=== PATIENT | female | born 1965 | race Caucasian/White ===

== ENCOUNTER 2019-10-23 09:26 | Outpatient (CLI) | payer OTHER, SELFPAY ==
--- NOTE | ~2019-10-23 | US_ITS ---
EXAMINATION: US venous doppler [facility] DATE: 10/23/2019 10:26 INDICATION: Left lower limb pain and swelling TECHNIQUE: Grayscale ultrasound images without and with compression and Doppler ultrasound images of the left lower extremity veins were obtained. COMPARISON: None. FINDINGS: Noncompressible occlusive appearing deep venous thrombosis in the peroneal veins at the left calf. Th e visualized portions of left common femoral vein, profunda (deep) femoral vein, femoral vein, poplit eal vein, posterior tibial veins, gastrocnemius vein and greater saphenous vein outflow are patent. IMPRESSION: 1. [id number] deep venous necrosis in the left peroneal veins at the calf. Reviewed, dictated and finalized at location A. IMPRESSION: 1. [id number] deep venous necrosis in the left peroneal veins at the calf.
== END 2019-10-23 09:27 | disposition home or self-care (01) ==
PROVIDERS: PCP Family Medicine; Visit Provider Family Medicine
DX: R60.0 Localized edema (principal); M79.605 Pain in left leg; I96 Gangrene, not elsewhere classified
CPT/HCPCS: 93971

== ENCOUNTER 2019-11-07 14:00 | Outpatient (CLI) | payer OTHER, SELFPAY ==
--- NOTE | ~2019-11-07 | XR_ITS ---
XR ankle RT min 3V DATE: 11/07/2019 15:01 INDICATION: Right ankle and foot pain TECHNIQUE: 4 views COMPARISON: None FINDINGS: Minimal lateral soft tissue swelling. Mild plantar and posterior calcaneal enthesopathy. No fracture or dislocation of the ankle or disruption of the ankle mortise. No periosteal reaction or bone destruction. IMPRESSION: Minimal lateral soft tissue swelling Mild posterior and plantar calcaneal enthesopathy Reviewed, dictated and finalized at location J.
--- NOTE | ~2019-11-07 | XR_ITS ---
XR foot RT min 3V DATE: 11/07/2019 15:02 INDICATION: Right foot pain. No known injury. TECHNIQUE: 4 views COMPARISON: None FINDINGS: Mild plantar and posterior calcaneal enthesopathy. There is joint space narrowing at the first metatarsophalangeal and first interphalangeal joints, con sistent with osteoarthritis. No fracture or dislocation, periosteal reaction or bone destruction. IMPRESSION: Mild plantar and posterior calcaneal enthesopathy Mild osteoarthritis Reviewed, dictated and finalized at location J.
--- NOTE | ~2019-11-07 | US_ITS ---
EXAMINATION: US venous doppler LE RT EXAM DATE: 11/07/2019 14:46 INDICATION: Right Foot pain. TECHNIQUE: Multiple grayscale, color flow and Doppler images of the right lower extremity deep venous system were obtained and reviewed. Comparison is made to prior examination from 01/21/2017. FINDINGS: The right common femoral, femoral and profunda veins demonstrate normal color flow, respira tory variation, augmentation and compressibility. Compressibility, color flow confirmed within the r ight popliteal, posterior tibial, peroneal, and greater saphenous veins. IMPRESSION: 1. No right lower extremity deep venous thrombosis. Reviewed, dictated and finalized at location A.
== END 2019-11-07 14:01 | disposition home or self-care (01) ==
LOC: ANHIMG 14:03
PROVIDERS: PCP Family Medicine; Visit Provider Family Medicine
DX: M79.671 Pain in right foot (principal); M77.31 Calcaneal spur, right foot; M19.071 Primary osteoarthritis, right ankle and foot; M79.89 Other specified soft tissue disorders
CPT/HCPCS: 73610; 73630; 93971

== ENCOUNTER 2019-11-13 10:08 | Emergency (ER) | payer OTHER, SELFPAY ==
--- NOTE | 2019-11-13 10:16 | ED.BACK ---
HPI - Back Pain/Injury General Chief Complaint: Back Pain/Injury <NEVILLE Hill Last Filed: 11/13/19 11:36> Stated Complaint: Pain in my arturo <NEVILLE Hill Last Filed: 11/13/19 11:36> Time Seen by Provider: 11/13/19 10:12 <NEVILLE Hill Last Filed: 11/13/19 11:36> Source: patient and RN notes reviewed <NEVILLE Hill Last Filed: 11/13/19 11:36> Mode of arrival: ambulatory <NEVILLE Hill Last Filed: 11/13/19 11:36> Limitations: no limitations <NEVILLE Hill Last Filed: 11/13/19 11:36> History of Present Illness HPI Narrative: Pt is a 54 y/o female with a Hx of fibromyalgia, who presents to the ED with c/o waxing and waning lt middle back pain starting 1 day ago. She notes that she hasn't had any recent injuries that may have caused her pain. Pt notes that her pain has stayed around a 6/10, but states that her pain intermittently aggravates into an 8/10. Pt describes her pain as cramping and sharp. She notes that her pain is worsened with deep breathing. Pt also reports chronic hematuria and SOB, but denies any dysuria, cough, rhinorrhea, sore throat, fever, ABD pain, or acute numbness/tingling. She notes that she was recently diagnosed with a DVT, and states that she is currently taking Eliquis. Pt states that she took Percocet for her pain earlier this morning. She notes that she is concerned due to her current pain feeling different than previous fibromyalgia-associated pain. <NEVILLE Hill Last Filed: 11/13/19 11:36> MD elicited complaint: back pain <NEVILLE Hill Last Filed: 11/13/19 11:36> Pertinent past history: other (fibromyalgia) <NEVILLE Hill Last Filed: 11/13/19 11:36> Onset (ago): day(s) (1) <NEVILLE Hill Last Filed: 11/13/19 11:36> Timing: constant <NEVILLE Hill Last Filed: 11/13/19 11:36> Pain scale (0-10): 6 <NEVILLE Hill Last Filed: 11/13/19 11:36> Quality: sharp and other (cramping) <NEVILLE Hill Last Filed: 11/13/19 11:36> Location: left upper back <NEVILLE Hill Last Filed: 11/13/19 11:36> Exacerbating factors: deep breaths <NEVILLE Hill Last Filed: 11/13/19 11:36> Associated symptoms: hematuria (chronic) and other (SOB (chronic)) <NEVILLE Hill Last Filed: 11/13/19 11:36> Treatments prior to arrival: prescription analgesics (Percocet) <NEVILLE Hill Last Filed: 11/13/19 11:36> Related Data Home Medications: Home Medications Medication Instructions Recorded Confirmed Marijuana PRN 11/13/19 albuterol sulfate 11/13/19 alprazolam 11/13/19 apixaban [Eliquis] mg 11/13/19 atorvastatin 11/13/19 benzonatate mg PO 11/13/19 cyclobenzaprine mg 11/13/19 diclofenac sodium PO 11/13/19 duloxetine mg PO 11/13/19 furosemide 11/13/19 ipratropium-albuterol ml INHALATION 11/13/19 metoprolol succinate PO 11/13/19 naloxone [Narcan] INTRANASAL 11/13/19 oxycodone-acetaminophen 11/13/19 potassium chloride meq PO 11/13/19 pregabalin 11/13/19 pregabalin [Lyrica] 11/13/19 <NEVILLE Hill Last Filed: 11/13/19 11:36> Allergies/Adverse Reactions: Allergies Allergy/AdvReac Type Severity Reaction Status Date / Time ciprofloxacin Allergy Unknown Hives / Verified 11/13/19 10:23 Red Face Penicillins Allergy Unknown Unknown Verified 11/13/19 10:23 lisinopril AdvReac Intermediate COUGH Verified 11/13/19 10:23 <NEVILLE Hill Last Filed: 11/13/19 11:36> Review of Systems Review of Systems: All systems reviewed & are unremarkable except as noted in HPI and below <Hira Wilson PA-C - Last Filed: 11/13/19 11:36> Constitutional: Constitutional: Denies fever(s) <Hira Wilson PA-C - Last Filed: 11/13/19 11:36> ENT: Denies nasal discharge and Denies sore throat <Hira Feliz
[2019-11-13 10:18] VITALS: BP 122/73; PULSE 69; RESP 20; TEMP 36.2; O2SAT 98
[2019-11-13 10:40] LABS: Basophils Absolute Auto 0.1 K/mm3 (0.0-0.1); Basophils Percent Auto 0.5 % (0.2-1.2); Eosinophils Absolute Auto 0.3 K/mm3 (0-0.3); Eosinophils Percent Auto 2.4 % (0-4.4); Hematocrit 40.8 % (37.0-47.0); Hemoglobin 13.2 g/dL (12.0-15.0); Immature Granulocyte Absolute 0.04 K/mm3 (0.00-0.031); Immature Granulocyte Percent A 0.3 % (0-0.5); Lymphocytes Absolute Auto 2.57 K/mm3 (0.9-3.2); Mean Corpuscular HGB Conc 32.4 g/dl (32-36); Mean Corpuscular Hemoglobin 28.5 pg (26-34); Mean Corpuscular Volume 88.1 fl (80-100); Mean Platelet Volume 11.9 fl (7.4-10.4); Monocytes Absolute Auto 0.6 K/mm3 (0.1-0.6); Monocytes Percent Auto 5.2 % (2.6-8.5); Neutrophils Absolute Auto 8.1 K/mm3 (1.3-6.7); Neutrophils Percent Auto 69.6 % (45.5-73.1); Platelet Count Result 242 k/mm3 (150-375); Red Blood Count 4.63 M/mm3 (4.2-5.4); Red Cell Distribution Width 14.6 % (11.5-14.5); White Blood Count 11.7 K/mm3 (4.5-10.0)
[2019-11-13 10:52] LABS: Alanine Aminotransferase 45 U/L (4-35); Albumin Level 4.2 g/dL (3.5-5.1); Alkaline Phosphatase 106 U/L (38-126); Aspartate Amino Transferase 40 U/L (14-36); Bilirubin,Total 0.6 mg/dL (0.2-1.3); Blood Urea Nitrogen 27 mg/dL (7-17); Calcium 9.4 mg/dL (8.4-10.2); Carbon Dioxide 30 mmol/L (22-30); Chloride 100 mmol/L (98-107); Estimated CRCL calculation 59 ml/min; Estimated Glomerular Filt Rate 39; Glucose 93 mg/dL (65-105); Potassium 3.5 mmol/L (3.4-5.0); Sodium 138 mmol/L (137-145)
[2019-11-13 10:53] LABS: Add Urine Microscopic? YES; Appearance Urine Clear (Clear); Bilirubin Urine Negative (Negative); Blood Urine 2+ (Negative); Color Urine Yellow (Yellow); Glucose Urine UA Negative (Negative); Hyaline Casts Urine 15-19 /lpf; Ketones Urine Negative (Negative); Leukocyte Esterase Ur Negative LEU/UL (Negative); Mucus Urine Rare /lpf; Nitrate Urine Negative (Negative); Protein Urine Negative (Negative); Specific Grav Ur 1.017 (1.001-1.035); Squamous Epithelial Cell Urine Many /hpf (Few); Urobilinogen Urine Negative mg/dL (<2.0); WBC Urine 0-3 /hpf
== END 2019-11-13 11:42 | disposition home or self-care (01) ==
PROVIDERS: Emergency Medicine Emergency Medical Services; Emergency Provider General Practice; PCP Family Medicine
DX: E86.0 Dehydration (principal); M54.5 Low back pain; M79.7 Fibromyalgia; J44.9 Chronic obstructive pulmonary disease, unspecified; E78.5 Hyperlipidemia, unspecified; I10 Essential (primary) hypertension; E03.9 Hypothyroidism, unspecified; G62.9 Polyneuropathy, unspecified; Z86.718 Personal history of other venous thrombosis and embolism; Z79.01 Long term (current) use of anticoagulants; Z87.19 Personal history of other diseases of the digestive system; Z87.440 Personal history of urinary (tract) infections
CPT/HCPCS: 36415; 80053; 81001; 85025; 99283

== ENCOUNTER 2019-11-20 10:52 | Outpatient (CLI) | payer OTHER, SELFPAY ==
--- NOTE | ~2019-11-20 | CT_ITS ---
EXAMINATION: CT abdomen pelvis wo con EXAM DATE: 11/20/2019 11:08 INDICATION: Left flank pain and right flank pain. Hematuria. Hypertension. TECHNIQUE: Spiral CT of the abdomen and pelvis was performed without contrast. Axial, coronal and sag ittal images were reviewed. The dose-length product (DLP) for this examination was 1067.31 mGy-cm. The exposure was tailored according to patient size (auto mA exposure control), and iterative reconst ruction (ASIR) was used as additional dose reduction technique. Comparison is made to prior examinati on from 06/01/2018. FINDINGS: There is no nephrolithiasis or hydronephrosis. The uterus is unremarkable. The bladder is unremarkable. Right adrenal gland low-density lesion consistent with adenoma measuring 3.0 cm, un changed. Left adrenal gland, liver, spleen, pancreas are unremarkable. Gallbladder is unremarkable. No biliary obstruction. There is no retroperitoneal or pelvic lymphadenopathy. The appendix is normal. The stomach and small bowel are unremarkable. There is mild scattered coloni c diverticulosis. There is no adjacent inflammatory change to suggest diverticulitis. No free intra peritoneal gas. The heart is normal in size. There are no pericardial or pleural effusions. The l sonya bases are unremarkable. There are no osteoblastic or osteolytic lesions identified. IMPRESSION: 1. No nephrolithiasis, hydronephrosis or acute intra-abdominal findings. 2. Right adrenal gland adenoma. 3. Mild colonic diverticulosis. Reviewed, dictated and finalized at location B.
== END 2019-11-20 10:53 ==
LOC: MICIMG 10:53
PROVIDERS: PCP Family Medicine; Visit Provider Family Medicine
DX: R10.9 Unspecified abdominal pain (principal); D35.01 Benign neoplasm of right adrenal gland; K57.90 Diverticulosis of intestine, part unspecified, without perforation or abscess without bleeding
CPT/HCPCS: 74176

== ENCOUNTER 2020-01-18 17:24 | Emergency (ER) | payer OTHER, SELFPAY ==
--- NOTE | ~2020-01-18 | XR_ITS ---
EXAMINATION: XR ankle LT min 3V DATE: 01/18/2020 18:02 INDICATION: Left ankle pain and swelling. TECHNIQUE: 4 views of left ankle were obtained. COMPARISON: None. FINDINGS: Bone alignment is normal. There is a chip avulsion fracture of distal fibula. There is mild osteoarthritis of talonavicular joint. There are enthesophytes at the posterior and plantar aspects of calcaneal tuberosity. Ankle soft tissue swelling is noted. IMPRESSION: 1. Chip avulsion fracture of distal fibula. Reviewed, dictated and finalized at location A.
--- NOTE | ~2020-01-18 | XR_ITS ---
EXAMINATION: XR foot LT min 3V DATE: 01/18/2020 18:01 INDICATION: Left foot pain and swelling. TECHNIQUE: 4 views of left foot were obtained. COMPARISON: None. FINDINGS: Bone alignment is normal. No fracture. There is a benign bone island in second distal phala nx. There is mild osteoarthritis of some of the interphalangeal joints and midfoot joints. There are enthesophytes at the posterior and plantar aspects of calcaneal tuberosity. IMPRESSION: 1. Mild polyarticular osteoarthritis. Reviewed, dictated and finalized at location A.
[2020-01-18 17:26] VITALS: BP 115/76; PULSE 100; RESP 18; TEMP 36.2; O2SAT 100
[2020-01-18 17:55] VITALS: BP 106/54; PULSE 102; RESP 20; O2SAT 96
--- NOTE | 2020-01-18 18:04 | ED.GENADULT ---
HPI - General Adult General Chief complaint: Extremity Injury, Lower Stated complaint: LEFT FOOT PAIN Time Seen by Provider: 01/18/20 18:05 Source: patient and family Mode of arrival: ambulatory Limitations: no limitations History of Present Illness HPI narrative: 54-year-old female patient presents to the [facility] with complaints of left ankle and foot pain. Patient states that she was walking and heard a pop to the ankle and states that since then it has been very painful. Patient states she has been taking her Percocet that she has had at home for the pain but has not been helping. Patient states that she is concerned because she has had a blood clot to that left foot before and is currently on Eliquis. Patient denies any numbness or tingling at this time. Patient states she is unable to bear weight onto the left foot. Related Data Home Medications Medication Instructions Recorded Confirmed Marijuana PRN 11/13/19 albuterol sulfate 11/13/19 alprazolam 11/13/19 apixaban [Eliquis] mg 11/13/19 atorvastatin 11/13/19 benzonatate mg PO 11/13/19 cyclobenzaprine mg 11/13/19 diclofenac sodium PO 11/13/19 duloxetine mg PO 11/13/19 furosemide 11/13/19 ipratropium-albuterol ml INHALATION 11/13/19 metoprolol succinate PO 11/13/19 naloxone [Narcan] INTRANASAL 11/13/19 oxycodone-acetaminophen 11/13/19 potassium chloride meq PO 11/13/19 pregabalin 11/13/19 pregabalin [Lyrica] 11/13/19 Allergies Allergy/AdvReac Type Severity Reaction Status Date / Time ciprofloxacin Allergy Unknown Hives / Verified 11/13/19 10:23 Red Face Penicillins Allergy Unknown Unknown Verified 11/13/19 10:23 lisinopril AdvReac Intermediate COUGH Verified 11/13/19 10:23 Review of Systems Review of Systems: Narrative: CONSTITUTIONAL: Denies fever, chills, or sweats. EYES: Denies visual changes, redness, or discharge. ENT: Denies rhinorrhea, congestion, sore throat, or otalgia. CARDIOVASCULAR: Denies chest pain, palpitations, or edema. RESPIRATORY: Denies cough or dyspnea. GASTROINTESTINAL: Denies abdominal pain, nausea, vomiting, or diarrhea. GENITOURINARY: Denies dysuria or hematuria. SKIN: Denies rash or itching. MUSCULOSKELETAL: Denies back pain, joint pain, or myalgia. Positive left foot/ankle pain NEUROLOGIC: Denies headache, numbness, or weakness. PSYCHIATRIC: Denies anxiety or depression. [facility] Past Medical History Medical History Anxiety Arthritis Back pain COPD (chronic obstructive pulmonary disease) Depression Diverticulitis DVT (deep venous thrombosis) Eczema Fibromyalgia History of rectal polyps HLD (hyperlipidemia) HTN (hypertension) Hypothyroidism Peripheral neuropathy Sleep apnea with use of continuous positive airway pressure (CPAP) UTI (urinary tract infection) Surgical History Surgical History Hx of section Hx of rectal polypectomy Social History Social History Smoking status: Smoker, status unknown Gender identity (if verbalized by the patient): Female Comments At the time of my signature I agree with nursing past medical history, surgical, social, and family history. There is no relevant family history pertinent to the presenting complaint. Exam Narrative: Exam Narrative: GENERAL: Well-appearing, well-nourished, and in no acute distress. HEAD: Normocephalic, atraumatic. EYES: PERRLA and EOMI. ENT: Nares clear, no rhinorrhea or epistaxis. Mucous membranes moist. NECK: Supple. No lymphadenopathy CHEST: Clear to auscultation. No respiratory distress. HEART: Regular rate and rhythm. No murmur heard. Normal peripheral pulses. ABDOMEN: Soft, nontender, nondistended, normal active bowel sounds. EXTREMITIES: Patient is able to bear weight and ambulate without pain. The L ankle is without obvious asymmetry or deformity w
[2020-01-18 18:21] VITALS: BP 133/72; PULSE 83; RESP 15; O2SAT 92
[2020-01-18 19:30] VITALS: BP 118/67; PULSE 77; RESP 18; TEMP 36.4; O2SAT 94
== END 2020-01-18 20:00 | disposition home or self-care (01) ==
PROVIDERS: Emergency Provider Nurse Practitioner Family; PCP Family Medicine
DX: S82.832A Other fracture of upper and lower end of left fibula, initial encounter for closed fracture (principal); J44.9 Chronic obstructive pulmonary disease, unspecified; Z86.718 Personal history of other venous thrombosis and embolism; M79.7 Fibromyalgia; E78.5 Hyperlipidemia, unspecified; I10 Essential (primary) hypertension; E03.9 Hypothyroidism, unspecified; G62.9 Polyneuropathy, unspecified; G47.30 Sleep apnea, unspecified; Z87.440 Personal history of urinary (tract) infections; Z87.19 Personal history of other diseases of the digestive system; M19.072 Primary osteoarthritis, left ankle and foot; Z79.01 Long term (current) use of anticoagulants; X50.9XXA Other and unspecified overexertion or strenuous movements or postures, initial encounter; Y93.01 Activity, walking, marching and hiking
CPT/HCPCS: 73610; 73630; 96374; 99284; J3010

== ENCOUNTER 2020-08-29 11:39 | Emergency (ER) | payer OTHER, SELFPAY ==
--- NOTE | ~2020-08-29 | CT_ITS ---
EXAMINATION: CT brain wo con DATE: 08/29/2020 15:23 INDICATION: Fall. Headache. TECHNIQUE: Computed tomography (CT) of the head was performed without intravenous contrast. Sagittal and coronal reconstructions were performed. The mA was adjusted according to patient size. Iterative reconstruction technique was employed. The dose-length product was 605.33 mGy-cm. COMPARISON: head CT dated 01/19/2016 and brain MR dated 01/22/2016 FINDINGS: No fracture. No acute intracranial hemorrhage, acute infarction or abnormal extra axial fluid collect ion. Ventricles are normal and symmetric. No mass/mass effect. Small osteoma at the right frontoethmo idal recess. Paranasal sinuses are otherwise unremarkable. The orbits and mastoid air cells are ernesto l. IMPRESSION: 1. Normal brain. No fracture or acute intracranial process. Reviewed, dictated and finalized at location A. SAFETY TECHNICIAN
--- NOTE | ~2020-08-29 | XR_ITS ---
EXAMINATION: XR chest 1V portable DATE: 08/29/2020 14:34 INDICATION: Syncope. TECHNIQUE: A single frontal view of the chest was obtained on 2 radiographs. COMPARISON: CT abdomen and pelvis/, chest single view 12/24/2015 FINDINGS: Sensitivity is decreased by obesity. There is no pneumonia, pleural effusion, or pneumothor ax. Cardiomegaly is noted. IMPRESSION: 1. Cardiomegaly. Reviewed, dictated and finalized at location B. ITION AIDE IMPRESSION: 1. Cardiomegaly.
[2020-08-29 11:43] VITALS: BP 129/63; PULSE 69; RESP 18; TEMP 36.1; O2SAT 99
--- NOTE | 2020-08-29 11:43 | ECG_ITS ---
Measurements Intervals [place] Rate: 59 P: 46 [place]: 184 QRS: 75 QRSD: 77 T: 50 QT: 409 QTc: 408 Interpretive Statements SINUS BRADYCARDIA LOW QRS VOLTAGE IN PRECORDIAL LEADS BORDERLINE ST-T WAVE ABNORMALITY- ANTERIOR LEADS BASELINE ARTIFACT- I, III, AVL, AVF BORDERLINE ECG Electronically Signed On 08-29-2020 12:26:20 SUPERVISOR FINAL by London Sam D.O.
[2020-08-29 11:58] LABS: Basophils Absolute Auto 0.1 K/mm3 (0.0-0.1); Basophils Percent Auto 0.7 % (0.2-1.2); Eosinophils Absolute Auto 0.4 K/mm3 (0-0.3); Eosinophils Percent Auto 3.6 % (0-4.4); Hematocrit 41.4 % (37.0-47.0); Hemoglobin 13.6 g/dL (12.0-15.0); Immature Granulocyte Absolute 0.05 K/mm3 (0.00-0.031); Immature Granulocyte Percent A 0.5 % (0-0.5); Lymphocytes Absolute Auto 3.48 K/mm3 (0.9-3.2); Lymphocytes Percent Auto 34.6 % (18.3-44.2); Mean Corpuscular HGB Conc 32.9 g/dl (32-36); Mean Corpuscular Hemoglobin 29.7 pg (26-34); Mean Corpuscular Volume 90.4 fl (80-100); Mean Platelet Volume 11.2 fl (7.4-10.4); Monocytes Absolute Auto 0.5 K/mm3 (0.1-0.6); Monocytes Percent Auto 5.4 % (2.6-8.5); Neutrophils Absolute Auto 5.6 K/mm3 (1.3-6.7); Neutrophils Percent Auto 55.2 % (45.5-73.1); Platelet Count Result 235 k/mm3 (150-375); Red Blood Count 4.58 M/mm3 (4.2-5.4); Red Cell Distribution Width 14.3 % (11.5-14.5); White Blood Count 10.1 K/mm3 (4.5-10.0)
[2020-08-29 12:11] LABS: Anion Gap 7 mmol/L (8-16); Blood Urea Nitrogen 24 mg/dL (7-17); Calcium 9.4 mg/dL (8.4-10.2); Carbon Dioxide 31 mmol/L (22-30); Chloride 102 mmol/L (98-107); Estimated CRCL calculation 55 ml/min; Estimated Glomerular Filt Rate 36; Glucose 101 mg/dL (65-105); Potassium 3.5 mmol/L (3.4-5.0); Sodium 140 mmol/L (137-145)
[2020-08-29 14:11] VITALS: BP 131/76; PULSE 57
[2020-08-29 14:12] VITALS: BP 129/73; PULSE 62
[2020-08-29 14:13] VITALS: BP 115/68; PULSE 63
--- NOTE | 2020-08-29 14:55 | ED.GENADULT ---
HPI - General Adult General Chief complaint: Syncope Stated complaint: Syncopal Episode Today Time Seen by Provider: 08/29/20 13:59 Source: patient Mode of arrival: ambulatory Limitations: no limitations History of Present Illness HPI narrative: Patient is a 55-year-old female who presents to emergency department for evaluation of syncopal episode that occurred after choking on her coffee patient notes that she woke up on the ground has since had mild headache denies other complaints had felt fine prior to the choking episode patient on arrival no distress resting comfortably in the room patient denies anticoagulant use or similar occurrence in the past Related Data Home Medications Medication Instructions Recorded Confirmed Marijuana PRN 11/13/19 albuterol sulfate 11/13/19 alprazolam 11/13/19 apixaban [Eliquis] mg 11/13/19 atorvastatin 11/13/19 benzonatate mg PO 11/13/19 cyclobenzaprine mg 11/13/19 diclofenac sodium PO 11/13/19 duloxetine mg PO 11/13/19 furosemide 11/13/19 ipratropium-albuterol ml INHALATION 11/13/19 metoprolol succinate PO 11/13/19 naloxone [Narcan] INTRANASAL 11/13/19 oxycodone-acetaminophen 11/13/19 potassium chloride meq PO 11/13/19 pregabalin 11/13/19 pregabalin [Lyrica] 11/13/19 Allergies Allergy/AdvReac Type Severity Reaction Status Date / Time ciprofloxacin Allergy Unknown Hives / Verified 08/29/20 14:07 Red Face Penicillins Allergy Unknown Unknown Verified 08/29/20 14:07 lisinopril AdvReac Intermediate COUGH Verified 08/29/20 14:07 Review of Systems Review of Systems: All systems reviewed & are unremarkable except as noted in HPI and below PMFSH Past Medical History Medical History (Updated 08/29/20 @ 15:41 by Hira Wilson PA-C) Anxiety Arthritis Back pain COPD (chronic obstructive pulmonary disease) Depression Diverticulitis DVT (deep venous thrombosis) Eczema Fibromyalgia History of rectal polyps HLD (hyperlipidemia) HTN (hypertension) Hypothyroidism Peripheral neuropathy Sleep apnea with use of continuous positive airway pressure (CPAP) UTI (urinary tract infection) Surgical History Surgical History Hx of section Hx of rectal polypectomy Social History Social History Smoking status: Smoker, status unknown Gender identity (if verbalized by the patient): Female Exam Narrative: Exam Narrative: My normal adult exam Course Course Emergency Course: Patient is a 55-year-old female who presents with sounds like vasovagal syncope secondary to choking episode in the room in no distress resting comfortably patient had imaging which was unremarkable of the brain due to possible head injury patient resting comfortably was hydrated will be discharged home with outpatient follow-up ABCs and vital sign intact and stable Vital Signs Vital signs: Vital Signs Temperature 96.9 F L 08/29/20 11:43 Pulse Rate 69 08/29/20 11:43 Respiratory Rate 18 08/29/20 11:43 Blood Pressure 129/63 08/29/20 11:43 Pulse Oximetry 99 08/29/20 11:43 Temperature 96.9 F L 08/29/20 11:43 Pulse Rate 63 08/29/20 14:13 Respiratory Rate 18 08/29/20 11:43 Blood Pressure 115/68 08/29/20 14:13 Pulse Oximetry 99 08/29/20 11:43 Medical Decision Making MDM Narrative Medical decision making narrative: Patient with what was described as likely vasovagal syncope no high risk changes in the blood work or imaging hydrated felt appropriate for outpatient reevaluation with plan follow-up with primary care will be discharged home with her Vital Signs Vital Signs: Vital Signs Temperature 96.9 F L 08/29/20 11:43 Pulse Rate 69 08/29/20 11:43 Respiratory Rate 18 08/29/20 11:43 Blood Pressure 129/63 08/29/20 11:43 Pulse Oximetry 99 08/29/20 11:43 Temperature 96.9 F L 08/29/20 11:43 Pulse Rate 63
--- NOTE | 2020-08-29 15:32 | PC.NURSE ---
Pt.'s spouse called apprx. 45 minutes ago. Asked pt. if I had his permission to discuss his POC with his , he answered yes. Spouse made aware pt. has abnormal lab values for electrolytes and pt. will probably be admitted. She was made aware no visitors allowed for inpts. at this time and she voiced understanding. She confirmed she and pt. staying in contact via cell phone.
[2020-08-29] MEDS: SODIUM CHLORIDE 0.9% IV 1,000 ML 999 ML IV CONT (15:52)
[2020-08-29 15:58] VITALS: BP 106/69; PULSE 60; RESP 16; O2SAT 99
== END 2020-08-29 16:58 | disposition home or self-care (01) ==
PROVIDERS: Emergency Provider Emergency Medicine; PCP Family Medicine
DX: R55 Syncope and collapse (principal); J44.9 Chronic obstructive pulmonary disease, unspecified; I10 Essential (primary) hypertension; E78.5 Hyperlipidemia, unspecified; E03.9 Hypothyroidism, unspecified; G47.30 Sleep apnea, unspecified; G62.9 Polyneuropathy, unspecified; M79.7 Fibromyalgia; F32.9 Major depressive disorder, single episode, unspecified; F41.9 Anxiety disorder, unspecified; Z86.718 Personal history of other venous thrombosis and embolism; Z87.19 Personal history of other diseases of the digestive system; Z87.440 Personal history of urinary (tract) infections; Z79.01 Long term (current) use of anticoagulants; I51.7 Cardiomegaly; R00.1 Bradycardia, unspecified; R94.31 Abnormal electrocardiogram [ECG] [EKG]
CPT/HCPCS: 36415; 70450; 71045; 80048; 85025; 93005; 96360; 99284; J7030

== ENCOUNTER 2020-10-23 07:57 | Outpatient (CLI) | payer OTHER, SELFPAY ==
--- NOTE | ~2020-10-23 | US_ITS ---
EXAMINATION: US abdomen complete DATE: 10/23/2020 08:24 INDICATION: Right upper quadrant abdominal pain. TECHNIQUE: Multiple grayscale and Doppler ultrasound images of the abdomen were obtained. COMPARISON: CT abdomen and pelvis 11/20/19 FINDINGS: The visualized portions of the head and body of the pancreas are normal. There is diffuse h epatic steatosis. There is normal flow in main portal vein. The gallbladder is normal in size and con tains sludge. No gallstones or gallbladder wall thickening. There was no sonographic Zheng sign. The re is mild splenomegaly measuring 13.3 cm, likely secondary to obesity. The kidneys are normal in siz e. Abdominal aorta and inferior vena cava are normal. IMPRESSION: 1. Gallbladder sludge. No evidence of acute cholecystitis. 2. Diffuse hepatic steatosis. Reviewed, dictated and finalized at location A.
== END 2020-10-23 07:58 ==
PROVIDERS: PCP Family Medicine; Visit Provider Family Medicine
DX: R10.9 Unspecified abdominal pain (principal); K76.0 Fatty (change of) liver, not elsewhere classified
CPT/HCPCS: 76700

== ENCOUNTER 2020-10-29 08:21 | Outpatient (CLI) | payer OTHER, SELFPAY ==
--- NOTE | ~2020-10-29 | NM_ITS ---
EXAMINATION: NM hepatobiliary w pharm DATE: 10/29/2020 11:56 INDICATION: Right upper quadrant abdominal pain COMPARISON: None. TECHNIQUE: 5.1 mCi Tc-99m mebrofenin (Choletec) was administered intravenously. Scintigraphic images of the abdomen were obtained for one hour. 2.9 mcg sincalide (Kinevac) was administered by slow intr avenous infusion, and imaging was continued for 30 minutes. Gallbladder ejection fraction was calcula kojo by the technologist. FINDINGS: There is normal clearance of radiotracer from the blood pool. There is homogeneous tracer uptake by t he liver. Activity progresses to the gallbladder and bowel. The gallbladder ejection fraction (GBEF) is 68% (normal 10-90%, but most patient with gallbladder dysfunction have GBEF < 35% which does over lap with the normal range). IMPRESSION: 1. Normal hepatobiliary scan. Reviewed, dictated and finalized at location A.
== END 2020-10-29 08:22 | disposition home or self-care (01) ==
PROVIDERS: PCP Family Medicine; Visit Provider Family Medicine
DX: K82.9 Disease of gallbladder, unspecified (principal)
CPT/HCPCS: 78227; A9537; J2805

== ENCOUNTER 2020-10-30 13:03 | Outpatient (CLI) | payer OTHER, SELFPAY ==
--- NOTE | ~2020-10-30 | US_ITS ---
US renal BI 10/30/2020 13:20 Procedure: Realtime transabdominal ultrasound of the kidneys and bladder. Indication: Hypertension. Comparison: Ultrasound dated 10/23/2020 Findings: Renal echotexture is normal bilaterally without hydronephrosis, contour deforming mass or r enal calculus. The right kidney measures 9.8 cm and left kidney measures 11.8 cm. Bladder within nor mal limits. Incidental note is made of fatty infiltration of the liver. Impression: 1: Unremarkable renal ultrasound. No stones, masses or hydronephrosis. Reviewed, dictated and finalized at location A. Impression: 1: Unremarkable renal ultrasound. No stones, masses or hydronephrosis.
== END 2020-10-30 13:04 ==
PROVIDERS: PCP Family Medicine; Visit Provider Internal Medicine Nephrology
DX: N17.8 Other acute kidney failure (principal); I10 Essential (primary) hypertension
CPT/HCPCS: 76775

== ENCOUNTER 2021-04-05 19:56 | Observation (INO) | payer OTHER, SELFPAY ==
[2021-04-05] VITALS (14 sets, daily range): BP systolic 109–144; BP diastolic 40–84; PULSE 58–82; RESP 12–19; TEMP 35.8–36.7; O2SAT 92–100
--- NOTE | ~2021-04-05 | XR_ITS ---
XR chest 2V DATE: 04/05/2021 20:28 INDICATION: Left chest pain radiating to abdomen and left shoulder. COPD. Hypertension. TECHNIQUE: PA and lateral views COMPARISON: 08/29/2020 portable AP chest FINDINGS: Cardiomegaly. No hilar or mediastinal enlargement. No pulmonary infiltrate or consolidation , pleural effusion or pulmonary vascular congestion or pneumothorax. IMPRESSION: Cardiomegaly; no active pulmonary disease Reviewed, dictated and finalized at location A.
--- NOTE | ~2021-04-05 | US_ITS ---
EXAMINATION: US venous doppler [facility] DATE: 04/06/2021 10:46 INDICATION: Varicose veins at the bilateral lower limbs. TECHNIQUE: Grayscale ultrasound images without and with compression and Doppler ultrasound images of the bilateral lower extremity veins were obtained. COMPARISON: None. FINDINGS: The visualized portions of right common femoral vein, profunda (deep) femoral vein, femoral vein, pop liteal vein, posterior tibial veins, peroneal veins, gastrocnemius vein and greater saphenous vein ou tflow are patent. The visualized portions of left common femoral vein, profunda femoral vein, femoral vein, popliteal v ein, posterior tibial veins, peroneal veins, gastrocnemius vein and greater saphenous vein outflow ar e patent. IMPRESSION: 1. No deep venous thrombosis in either lower limb. Reviewed, dictated and finalized at location A.
--- NOTE | 2021-04-05 19:58 | ECG_ITS ---
Measurements Intervals [place] Rate: 68 P: 33 [place]: 144 QRS: 52 QRSD: 91 T: 28 QT: 409 QTc: 437 Interpretive Statements SINUS RHYTHM NONSPECIFIC ST & T-WAVE ABNORMALITY- ANT/INF LEADS BASELINE ARTIFACT- I, II, III, AVR, AVL, V1-V4 BORDERLINE ECG Electronically Signed On 04-06-2021 8:18:24 CDT by London Sam D.O.
[2021-04-05 20:14] LABS: Basophils Absolute Auto 0.1 K/mm3 (0.0-0.1); Basophils Percent Auto 0.3 % (0.2-1.2); Eosinophils Percent Auto 0.1 % (0-4.4); Hemoglobin 13.4 g/dL (12.0-15.0); Immature Granulocyte Absolute 0.39 K/mm3 (0.00-0.031); Immature Granulocyte Percent A 2.2 % (0-0.5); Lymphocytes Percent Auto 21.2 % (18.3-44.2); Mean Corpuscular HGB Conc 32.7 g/dl (32-36); Mean Corpuscular Hemoglobin 28.9 pg (26-34); Mean Corpuscular Volume 88.6 fl (80-100); Mean Platelet Volume 10.9 fl (7.4-10.4); Monocytes Absolute Auto 1.4 K/mm3 (0.1-0.6); Monocytes Percent Auto 7.7 % (2.6-8.5); Neutrophils Absolute Auto 11.9 K/mm3 (1.3-6.7); Neutrophils Percent Auto 68.5 % (45.5-73.1); Platelet Count Result 355 k/mm3 (150-375); Red Blood Count 4.63 M/mm3 (4.2-5.4); Red Cell Distribution Width 14.5 % (11.5-14.5); White Blood Count 17.4 K/mm3 (4.5-10.0)
[2021-04-05 20:26] LABS: INR 0.9; Partial Thromboplastin Time 24.9 SECONDS (22.3-36.8); Prothrombin Time 12.4 Seconds (11.1-14.7)
[2021-04-05 20:28] LABS: Anion Gap 13 mmol/L (8-16); Blood Urea Nitrogen 35 mg/dL (7-17); Calcium 9.7 mg/dL (8.4-10.2); Carbon Dioxide 27 mmol/L (22-30); Chloride 97 mmol/L (98-107); Estimated Glomerular Filt Rate 34; Glucose 111 mg/dL (65-110); Sodium 137 mmol/L (137-145)
[2021-04-05 20:39] LABS: Troponin I < 0.012 ng/mL (0.000-0.034)
[2021-04-05] MEDS: ASPIRIN 81 MG CHEWABLE TABLET 324 MG PO (22:10)
[2021-04-05 22:52] LABS: Alanine Aminotransferase 40 U/L (4-35); Albumin Level 4.4 g/dL (3.5-5.1); Alkaline Phosphatase 98 U/L (38-126); Aspartate Amino Transferase 34 U/L (14-36); Bilirubin,Total 0.6 mg/dL (0.2-1.3); Lipase 43 U/L (23-300)
[2021-04-05] MEDS: IPRATROPIUM BR 0.02% INH SOLN 0.5 MG/2.5 ML VIAL INHALATION (22:52)
[2021-04-05] MEDS: ALBUTEROL SULFATE NEB 2.5 MG/0.5 ML INH 5 MG INHALATION (22:52)
--- NOTE | 2021-04-05 23:13 | PC.NURSE ---
Pt unable to urinate at this time.
--- NOTE | 2021-04-05 23:22 | ED.CHESTPAIN ---
HPI - Chest Pain General Chief Complaint: Chest Pain Stated Complaint: chest pain, radiating to arm, seizure? Time Seen by Provider: 04/05/21 22:08 Source: RN notes reviewed History of Present Illness HPI narrative: Patient presents emergency department from home for chest pain. Patient states the pain began approximately 2 hours ago and is located left side the chest describes a pressure in nature and radiates into her left shoulder she states is associated with shortness of breath. Patient states that earlier today she had had a syncopal episode while she been seen outside and had a coughing spell she states she does have a history of COPD she denies any fevers or chills abdominal pain vomiting or diarrhea does note some mild nausea. Patient states she was recently placed on steroids and Keflex by her PCP for swelling of her right ankle that has improved Related Data Home Medications Medication Instructions Recorded Confirmed Marijuana See Rx Instructions .ROUTE 11/13/19 04/06/21 .COMPLEX PRN alprazolam 0.5 mg PO TID PRN 11/13/19 04/06/21 atorvastatin 20 mg PO HS 11/13/19 04/06/21 cyclobenzaprine 10 mg PO TID PRN 11/13/19 04/06/21 diclofenac sodium 75 mg PO BID 11/13/19 04/06/21 duloxetine 60 mg PO BID 11/13/19 04/06/21 furosemide 40 mg PO DAILY 11/13/19 04/06/21 metoprolol succinate 50 mg PO HS 11/13/19 04/06/21 naloxone [Narcan] 4 mg INTRANASAL PRN PRN 11/13/19 04/06/21 oxycodone-acetaminophen 1 tablet PO Q8H PRN 11/13/19 04/06/21 potassium chloride 40 meq PO DAILY 11/13/19 04/06/21 pregabalin [Lyrica] 150 mg PO BID 11/13/19 04/06/21 albuterol sulfate 2 puff INHALATION Q6H PRN 04/06/21 04/06/21 aspirin [Aspir-81] 81 mg PO DAILY 04/06/21 04/06/21 cholecalciferol (vitamin D3) 250 mcg PO BID 04/06/21 04/06/21 [Dialyvite Vitamin D] hydrochlorothiazide 25 mg PO DAILY 04/06/21 04/06/21 hydroxyzine HCl 25 mg PO HS 04/06/21 04/06/21 levothyroxine [Euthyrox] 125 mcg PO DAILY 04/06/21 04/06/21 losartan 50 mg PO HS 04/06/21 04/06/21 trazodone 100 mg PO HS 04/06/21 04/06/21 umeclidinium-vilanterol [Anoro 1 inh INHALATION DAILY 04/06/21 04/06/21 Ellipta] Allergies Allergy/AdvReac Type Severity Reaction Status Date / Time ciprofloxacin Allergy Unknown Hives / Verified 04/05/21 22:15 Red Face Penicillins Allergy Unknown Unknown Verified 04/05/21 22:15 lisinopril AdvReac Intermediate COUGH Verified 04/05/21 22:15 Review of Systems Review of Systems: Gen.: Denies fevers or chills Eyes: Denies eye pain or visual change ENT: Denies congestion Respiratory: Reports shortness of breath and cough CV: See HPI GI: Denies abdominal pain emesis or diarrhea nausea denies burning, urgency, frequency or hematuria Musculoskeletal: Denies back pain or muscle pain Neuro: Denies numbness, tingling, weakness or focal weakness Skin: Denies rash Except as documented, all other systems reviewed and negative PMFSH Past Medical History Medical History (Updated 04/06/21 @ 04:13 by Julián Galvin MD) Anxiety Arthritis Back pain COPD (chronic obstructive pulmonary disease) Depression Diverticulitis DVT (deep venous thrombosis) Eczema Fibromyalgia History of rectal polyps HLD (hyperlipidemia) HTN (hypertension) Hypothyroidism Peripheral neuropathy Sleep apnea with use of continuous positive airway pressure (CPAP) UTI (urinary tract infection) Surgical History Surgical History (System 04/01/21 @ 09:30 by Jeanne Monte) Hx of section Hx of rectal polypectomy Family History Family History (Updated 04/06/21 @ 02:45 by Shayy Maria RN) Father Cirrhosis Hypertension Grandparent Hypertension Emphysema lung Other Family history of chronic obstructive pulmonary disease Social History Social History Smoking packs per day: 1 Smoking cigarettes per day: 20.0 Smoking status: Current every day smoker Tobacco type: cigarettes Second hand t
[2021-04-05 23:31] LABS: Troponin I < 0.012 ng/mL (0.000-0.034)
[2021-04-05] MEDS: MORPHINE SULFATE (*CRX) 2 MG/ML INJ IV PUSH (23:31)
[2021-04-06] VITALS (14 sets, daily range): BP systolic 122–145; BP diastolic 72–113; PULSE 53–86; RESP 14–22; TEMP 36.3–37.1; O2SAT 92–100; BMI 42.7; BMI 46.6
--- NOTE | 2021-04-06 03:07 | ADMIMU ---
This patient, Jagruti Thao, was admitted to IMU status, and placed in IMU Room 203-01 on 04/06/21 at 0215. Patient/family oriented to hospital policies and general routines including ID bracelet, bed and alarms, visiting hours, pain management, procedures, bathroom and other care routines, personal items, smoking policy, room service/diet, and visiting hours. . Information on how to activate the Rapid Response Team has been discussed. Patient/Family are encouraged to report perceived risks to care and to ask questions if they do not understand what they are told or what they should do.
[2021-04-06 03:55] LABS: Basophils Percent Auto 0.3 % (0.2-1.2); Eosinophils Percent Auto 0.2 % (0-4.4); Hematocrit 41.4 % (37.0-47.0); Hemoglobin 13.1 g/dL (12.0-15.0); Immature Granulocyte Absolute 0.28 K/mm3 (0.00-0.031); Lymphocytes Absolute Auto 4.47 K/mm3 (0.9-3.2); Lymphocytes Percent Auto 32.3 % (18.3-44.2); Mean Corpuscular HGB Conc 31.6 g/dl (32-36); Mean Corpuscular Hemoglobin 28.8 pg (26-34); Mean Platelet Volume 10.6 fl (7.4-10.4); Monocytes Absolute Auto 1.1 K/mm3 (0.1-0.6); Monocytes Percent Auto 7.6 % (2.6-8.5); Neutrophils Percent Auto 57.6 % (45.5-73.1); Platelet Count Result 290 k/mm3 (150-375); Red Blood Count 4.55 M/mm3 (4.2-5.4); Red Cell Distribution Width 14.5 % (11.5-14.5); White Blood Count 13.9 K/mm3 (4.5-10.0)
--- NOTE | 2021-04-06 03:57 | PM.IMHP ---
H&P: HPI History of Present Illness Date/Time: 04/06/21 03:57 Chief Complaint: Syncope Narrative: Patient presents to the emergency department from home for chest pain and syncopal episode. She stated that she was with her in [place] and had a coughing fit approximately about 6:00 p.m. in the evening and subsequently passed out while doing so. When she was awake her and her [id number] was in front of her helping. She states she has been feeling well all day and has been having intermittent chest pain which is not well localized sometimes in retrosternal sometimes in the left upper part of the chest and sometimes in the lower part of the chest at she points to these areas. She states she came back home and then came to the ER for evaluation. She was recently placed on steroid and Keflex by her primary care for swelling in the right ankle which she states now has improved. She denies any fever chills. She does have cough and has had cough for a long period time due to her underlying COPD. She does not use oxygen at home. She continues to smoke. Review of Systems Review of Systems: - CONSTITUTIONAL: Denies weight loss, fever and chills. - HEENT: Denies changes in vision and hearing - RESPIRATORY: Reports SOB and cough. - CV: Denies palpitations and reports CP. - GI: Denies abdominal pain, nausea, vomiting and diarrhea. - : Denies dysuria and urinary frequency. - MSK: Denies myalgia and joint pain. - SKIN: Denies rash and pruritus. - NEUROLOGICAL: Denies headache and syncope. - PSYCHIATRIC: Denies recent changes in mood. Denies anxiety and depression. All systems reviewed & are unremarkable except as noted in HPI and below Constitutional: Constitutional: Reports fatigue and Reports weakness Neurologic: Reports weakness Endocrine: Endocrine: Reports fatigue PMFSH Past Medical History Medical History (Updated 04/06/21 @ 04:13 by Julián Galvin MD) Anxiety Arthritis Back pain COPD (chronic obstructive pulmonary disease) Depression Diverticulitis DVT (deep venous thrombosis) Eczema Fibromyalgia History of rectal polyps HLD (hyperlipidemia) HTN (hypertension) Hypothyroidism Peripheral neuropathy Sleep apnea with use of continuous positive airway pressure (CPAP) UTI (urinary tract infection) Surgical History Surgical History (System 04/01/21 @ 09:30 by Jeanne Monte) Hx of section Hx of rectal polypectomy Family History Family History (Updated 04/06/21 @ 02:45 by Shayy Maria, CLAUDIO) Father Cirrhosis Hypertension Grandparent Hypertension Emphysema lung Other Family history of chronic obstructive pulmonary disease Social History Social History Smoking packs per day: 1 Smoking cigarettes per day: 20.0 Smoking status: Current every day smoker Tobacco type: cigarettes Second hand tobacco smoke exposure: Yes Alcohol intake: current Drinks per week: 1 Substance use: current Substance use type: marijuana and opiates Other substance usage details: less than 2 drinks a year, prescription for percocet Last use: 04/05/21 Gender identity (if verbalized by the patient): Female Spiritual care concerns: No Meds Home Medications and Allergies Home Medications Medication Instructions Recorded Confirmed Type Marijuana See Rx Instructions .ROUTE 11/13/19 04/06/21 History .COMPLEX PRN alprazolam 0.5 mg PO TID PRN 11/13/19 04/06/21 History atorvastatin 20 mg PO HS 11/13/19 04/06/21 History cyclobenzaprine 10 mg PO TID PRN 11/13/19 04/06/21 History diclofenac sodium 75 mg PO BID 11/13/19 04/06/21 History duloxetine 60 mg PO BID 11/13/19 04/06/21 History furosemide 40 mg PO DAILY 11/13/19 04/06/21 History metoprolol succinate 50 mg PO HS 11/13/19 04/06/21 History naloxone [Narcan] 4 mg INTRANASAL PRN PRN 11/13/19 04/06/21 History oxycodone-acetaminophen 1 tablet PO Q8H P
[2021-04-06 04:06] LABS: Alanine Aminotransferase 39 U/L (4-35); Albumin Level 4.2 g/dL (3.5-5.1); Alkaline Phosphatase 99 U/L (38-126); Anion Gap 9 mmol/L (8-16); Aspartate Amino Transferase 33 U/L (14-36); Bilirubin,Total 0.7 mg/dL (0.2-1.3); Blood Urea Nitrogen 37 mg/dL (7-17); Calcium 9.1 mg/dL (8.4-10.2); Carbon Dioxide 30 mmol/L (22-30); Chloride 100 mmol/L (98-107); Estimated CRCL calculation 59 ml/min; Estimated Glomerular Filt Rate 39; Glucose 101 mg/dL (65-110); Sodium 139 mmol/L (137-145)
[2021-04-06 04:18] LABS: Troponin I < 0.012 ng/mL (0.000-0.034)
[2021-04-06] MEDS: POTASSIUM CHLORIDE 20 MEQ TABLET 40 MEQ PO (06:23)
[2021-04-06] MEDS: LEVOTHYROXINE SODIUM 125 MCG TABLET PO (06:26)
[2021-04-06 06:54] LABS: Add Urine Microscopic? YES; Appearance Urine Clear (Clear); Bilirubin Urine Negative (Negative); Blood Urine 1+ (Negative); Color Urine Yellow (Yellow); Glucose Urine UA Negative (Negative); Ketones Urine Negative (Negative); Leukocyte Esterase Ur Negative LEU/UL (Negative); Nitrate Urine Negative (Negative); Protein Urine Negative (Negative); RBC Urine 0-2 /hpf (0-2); Squamous Epithelial Cell Urine Few /hpf (Few); Urobilinogen Urine Negative mg/dL (<2.0); WBC Urine 0-3 /hpf
[2021-04-06 07:18] LABS: Magnesium 2.3 mg/dL (1.6-2.3)
[2021-04-06] MEDS: ASPIRIN 81 MG ENTERIC TABLET PO (09:55)
[2021-04-06] MEDS: PREGABALIN (*CRX) 75 MG CAPSULE 150 MG PO (09:55)
[2021-04-06] MEDS: FUROSEMIDE 40 MG TABLET PO (09:56)
[2021-04-06] MEDS: POTASSIUM CHLORIDE 20 MEQ TABLET.ER 40 MEQ PO ×2 (09:56→13:47)
[2021-04-06] MEDS: hydroCHLOROthiazide 25 MG TABLET PO (09:57)
[2021-04-06] MEDS: DICLOFENAC SOD 75 MG TABLET.EC PO (09:57)
[2021-04-06] MEDS: methylPREDNISolone SOD SUCC 40 MG VIAL IV PUSH (09:57)
[2021-04-06] MEDS: DULoxetine HCL 30 MG CAPSULE.DR 60 MG PO (09:58)
[2021-04-06] MEDS: ALBUTEROL SULFATE NEB 2.5 MG/0.5 ML INH 5 MG INHALATION (10:02)
[2021-04-06] MEDS: IPRATROPIUM BR 0.02% INH SOLN 0.5 MG/2.5 ML VIAL INHALATION (10:02)
--- NOTE | 2021-04-06 10:12 | PM.IMPN ---
Progress Note: A&P Assessment and Plan (1) Syncope: Code(s): R55 - Syncope and collapse Status: Acute (2) Leukocytosis: Code(s): D72.829 - Elevated white blood cell count, unspecified Status: Acute (3) Hypokalemia: Code(s): E87.6 - Hypokalemia Status: Acute (4) Chronic kidney disease, stage 3: Code(s): N18.30 - Chronic kidney disease, stage 3 unspecified Status: Acute (5) Chest pain: Code(s): R07.9 - Chest pain, unspecified Status: Acute (6) COPD (chronic obstructive pulmonary disease): Code(s): J44.9 - Chronic obstructive pulmonary disease, unspecified Status: Acute (7) DVT (deep venous thrombosis): Code(s): I82.409 - Acute embolism and thrombosis of unspecified deep veins of unspecified lower extremity Status: Acute (8) Back pain: Code(s): M54.9 - Dorsalgia, unspecified Status: Acute (9) Anxiety: Code(s): F41.9 - Anxiety disorder, unspecified Status: Acute (10) Peripheral neuropathy: Code(s): G62.9 - Polyneuropathy, unspecified Status: Acute (11) Hypothyroidism: Code(s): E03.9 - Hypothyroidism, unspecified Status: Acute (12) HLD (hyperlipidemia): Code(s): E78.5 - Hyperlipidemia, unspecified Status: Acute (13) HTN (hypertension): Code(s): I10 - Essential (primary) hypertension Status: Acute (14) Sleep apnea with use of continuous positive airway pressure (CPAP): Code(s): G47.30 - Sleep apnea, unspecified Status: Acute Additional Plan # Chest pain: EKG with nonspecific ST-T changes unchanged from previous EKGs comparatively. Troponin has been negative. D-dimer is negative chest x-rays negative since for cardiomegaly. Will get echocardiogram. Serial cardiac enzymes. Cardiology has been consulted from the ER will await their recommendations. Chest pain is atypical. No prior history of coronary artery disease # Syncope acute from cough/vasovagal continue to monitor on telemetry for any arrhythmia # Cough noted bronchospasm recently was on steroid. Will continue on steroid for possible mild COPD exacerbation. Will also place on azithromycin # Hypokalemia replace and continue home KCL # Leukocytosis? From recent steroid use continue to monitor # COPD mild exacerbation continue steroid and azithromycin # Right foot varicose vein she states this was not there previously will order venous duplex. History of DVT in the past and was treated with Eliquis for 6 months back in 2019 # Chronic kidney disease stage 3: Baseline Cr 1.4-1.6, currently at baseline # Chronic pain resume home medication # Long-term use of opioid analgesics # Fibromyalgia # Hypothyroidism # Hypertension # Hyperlipidemia # Peripheral neuropathy # History of DVT - Continue home meds for above chronic issues # Sleep apnea: Continue CPAP # Nicotine dependance: Hand out on smoking cessation printed, given, and discussed with her # DVT prophylaxis Lovenox subQ # Full code status Subjective Date/time seen: 04/06/21 10:12 No major issues overnight. She was on CPAP this morning I visited with her. Reports fatigue but looks fairly comfortable. Hemodynamically stable. Afebrile. No nausea or vomiting. Review of Systems Review of Systems: All systems reviewed & are unremarkable except as noted in HPI and below Exam Narrative: Gen: Alert, NAD Abd: Soft, NT, ND Heart: RRR Lungs: CTAB Ext: No lower extremity edema Objective Data Vital Signs Vital Signs: Vital Signs - 24 hr 04/05/21 20:02 04/05/21 22:10 04/05/21 22:23 Temperature 96.5 F L 98.1 F Pulse Rate 82 68 60 Respiratory Rate 17 18 13 Blood Pressure 120/63 144/74 H Pulse Oximetry 100 93 93 04/05/21 22:30 04/05/21 22:32 04/05/21 22:49 Temperature Pulse Rate 61 60 62 Respiratory Rate 12 14 14 Blood Pressure 109/84 Pulse Oximetry 92 92 94 04/05/21 22:56 04/05/21 23:01 04/05/21
--- NOTE | 2021-04-06 10:30 | PM.CNCAR ---
Assessment and Plan Additional Plan This is a 56-year-old woman with: Chest pain episodes that are very atypical and not suggestive of myocardial ischemia that occurred after recovery from an episode of post-tussive syncope that occurred last evening. She has no evidence of acute coronary syndrome by ECG or by troponin levels. Because of her risk factors I would recommend screening this lady for ischemic heart disease. Given her comorbidities a Lexiscan nuclear stress test would be appropriate. We obviously can not keep her in the hospital and do that tomorrow or performed as an outpatient. It is the patient's preference and minus well to do this as an outpatient. There is no evidence of acute coronary syndrome and her symptoms are very atypical. I do not believe she has to be kept in the hospital to have this done tomorrow. If there are noncardiac reasons to keep her in the hospital that we certainly can do this on Wednesday Law Perdue MD [facility] History of Present Illness History of Present Illness Consult date/time: 04/06/21 10:30 Consult reason: chest pain Reason For Visit: chest pain, COPD, syncope Narrative: This is a 56-year-old woman who I am seeing this morning at the request of the hospitalist because of chest pain. She is unknown to me prior to this encounter and is not known to have any cardiac pathology prior to this. The patient came to the emergency room last evening after an episode of syncope followed by some chest pain that occurred while she was at home. She does have a history of significant COPD with chronic tobacco use and she was at home last night following dinner with her and some friends and began to have a coughing spell. Following a significant coughing spell she had a brief episode of syncope and was brought to the hospital for evaluation. After waking up from the what appeared to be post-tussive syncope she began to experience episodes of chest pain she describes a very unusual sequence of pain with pain beginning in the left precordium then radiating down left inframammary region then across the chest to the right inframammary region and then back across the chest up into the left shoulder. She had several sequences of this kind pain that raised concern. In the emergency room her electrocardiogram showed no evidence of acute coronary syndrome. Her troponin level was normal she was asymptomatic at that time and was admitted to the hospital overnight for observation. She has had no further chest pain overnight and says she feels reasonably well this morning. She has had a coarse 3 sets of troponins done and they are unremarkable. In this setting she is being seen in consultation. Her chest x-ray shows no significant pathology. She does describe a history of a lower extremity DVT last year she states that for about 6 months or so she was anticoagulated with apixaban for treatment of this then the apixaban was discontinued. Presumably for that reason she is scheduled to have a venous Doppler of her lower extremity this morning. Yet to go down for that test. The patient otherwise feels comfortable and does not have any complaints her past medical history is primarily remarkable for hypertension hypercholesterolemia COPD with ongoing cigarette smoking fibromyalgia and morbid obesity. Review of Systems Constitutional: Constitutional: Reports fatigue Eyes: Eyes: Reports no additional eye complaints ENT: Reports system reviewed and no additional complaints, except as documented Cardiovascular: Cardiovascular: Reports as per HPI Respiratory: Respiratory: Reports dyspnea on exertion Gastrointestinal: Gastrointestinal: Reports no additional gastrointestinal complaints Musculoskeletal: Musculoskeletal: Reports myalgias Integumentary/Breasts: Skin/Breast: Reports system reviewed and no additional complaints, except as docu Neurologic: Reports system reviewed and no additional complaints, except as docum
[2021-04-06] MEDS: POTASSIUM CHLORIDE 20 MEQ TABLET PO (12:21)
[2021-04-06 12:38] LABS: Potassium 3.2 mmol/L (3.4-5.0)
--- NOTE | 2021-04-06 13:16 | PM.DS ---
DS: Admitting Diagnosis Admitting Diagnosis Chest pain Syncope DS: Discharge Diagnosis Discharge Diagnosis (1) Syncope: Code(s): R55 - Syncope and collapse Status: Acute (2) Leukocytosis: Code(s): D72.829 - Elevated white blood cell count, unspecified Status: Acute (3) Hypokalemia: Code(s): E87.6 - Hypokalemia Status: Acute (4) Chronic kidney disease, stage 3: Code(s): N18.30 - Chronic kidney disease, stage 3 unspecified Status: Acute (5) Chest pain: Code(s): R07.9 - Chest pain, unspecified Status: Acute (6) COPD (chronic obstructive pulmonary disease): Code(s): J44.9 - Chronic obstructive pulmonary disease, unspecified Status: Acute (7) DVT (deep venous thrombosis): Code(s): I82.409 - Acute embolism and thrombosis of unspecified deep veins of unspecified lower extremity Status: Acute (8) Back pain: Code(s): M54.9 - Dorsalgia, unspecified Status: Acute (9) Anxiety: Code(s): F41.9 - Anxiety disorder, unspecified Status: Acute (10) Peripheral neuropathy: Code(s): G62.9 - Polyneuropathy, unspecified Status: Acute (11) Hypothyroidism: Code(s): E03.9 - Hypothyroidism, unspecified Status: Acute (12) HLD (hyperlipidemia): Code(s): E78.5 - Hyperlipidemia, unspecified Status: Acute (13) HTN (hypertension): Code(s): I10 - Essential (primary) hypertension Status: Acute (14) Sleep apnea with use of continuous positive airway pressure (CPAP): Code(s): G47.30 - Sleep apnea, unspecified Status: Acute Assessment and Plan: # Chest pain: EKG with nonspecific ST-T changes unchanged from previous EKGs comparatively. Troponin has been negative. D-dimer is negative chest x-rays negative since for cardiomegaly. Will get echocardiogram. Serial cardiac enzymes. Cardiology has been consulted from the ER will await their recommendations. Chest pain is atypical. No prior history of coronary artery disease # Syncope acute from cough/vasovagal continue to monitor on telemetry for any arrhythmia # Cough noted bronchospasm recently was on steroid. Will continue on steroid for possible mild COPD exacerbation. Will also place on azithromycin # Hypokalemia replace and continue home KCL # Leukocytosis? From recent steroid use continue to monitor # COPD mild exacerbation continue steroid and azithromycin # Right foot varicose vein she states this was not there previously will order venous duplex. History of DVT in the past and was treated with Eliquis for 6 months back in 2019 # Chronic kidney disease stage 3: Baseline Cr 1.4-1.6, currently at baseline DS: Summary Hospital Course Hospital Course: This is a 56-year-old woman with past medical history of COPD, fibromyalgia, hyperlipidemia, hypertension, hypothyroidism, sleep apnea with current use of CPAP, who presented to the emergency department on 04/05 after a syncopal episode. She was sitting at a table eating and then had a very strong coughing fit after which she seems to have lost consciousness. This was very brief but felt chest pain that was retrosternal in nature which was of concern to her. When she presented to the emergency department she was found to have a blood pressure 120/63, heart rate 82, saturating 100% on room air. Blood work showed hemoglobin 13.4, WBC 17.4, platelets 355, sodium 137, potassium 3, chloride 97, bicarb 27, anion gap 13, BUN 35, creatinine 1.6, calcium 9.7. Troponin was negative. D-dimer was not elevated. Liver function tests were normal. She was subsequently admitted to the hospital for monitoring. Orthostatic blood pressure was assessed and was negative. She was evaluated by Cardiology. EKG did not show any evidence of ischemic changes. Three checks of troponins were all negative. It was deemed that her syncopal episode was vasovagal after her vigorous coughing episode, and h
--- NOTE | 2021-04-06 14:00 | PC.NURSE ---
Patient discharged to home at 1356. Education was provided and patient had no further questions at this time.
== END 2021-04-06 13:56 | disposition home or self-care (01) ==
LOC: ANHED 23:25 → ANHIMU 04-06 01:27
PROVIDERS: Admitting Provider Internal Medicine; Emergency Provider Emergency Medicine; PCP Family Medicine; Visit Provider Internal Medicine Nephrology
DX: R55 Syncope and collapse (principal); R07.9 Chest pain, unspecified; J44.9 Chronic obstructive pulmonary disease, unspecified; Z86.718 Personal history of other venous thrombosis and embolism; E78.5 Hyperlipidemia, unspecified; E03.9 Hypothyroidism, unspecified; G47.30 Sleep apnea, unspecified; I12.9 Hypertensive chronic kidney disease with stage 1 through stage 4 chronic kidney disease, or unspecified chronic kidney disease; F17.210 Nicotine dependence, cigarettes, uncomplicated; E87.6 Hypokalemia; D72.829 Elevated white blood cell count, unspecified; I83.93 Asymptomatic varicose veins of bilateral lower extremities; N18.30 Chronic kidney disease, stage 3 unspecified
CPT/HCPCS: 36415; 71046; 80048; 80053; 80076; 81001; 83690; 83735; 84132; 84484; 85025; 85380; 85610; 85730; 93005; 93970; 94640; 96365; 96374; 96375; 99285; A9270; G0378; J0131; J0456; J2270; J2920

== ENCOUNTER 2021-04-11 13:58 | Emergency (ER) | payer OTHER, SELFPAY ==
--- NOTE | ~2021-04-11 | XR_ITS ---
EXAMINATION: XR lumbar spine 2-3V EXAM DATE: 04/11/2021 15:34 INDICATION: Left-sided low back pain. No known recent injury. TECHNIQUE: Lumber spine frontal, lateral, lateral L5-S1 projections for interpretation. Comparison is made to prior examination from 05/06/2017. FINDINGS: Mild thoracolumbar disc disease. Mild diffuse lumbar facet arthropathy. No spondylolysis. The vertebral bodies are aligned in the AP dimension. Paraspinal soft tissue is unremarkable. Difficu lt to appreciate any significant interval change. IMPRESSION: Mild lumbar spondylosis. Reviewed, dictated and finalized at location B. IMPRESSION: Mild lumbar spondylosis.
[2021-04-11 14:06] VITALS: BP 105/51; PULSE 97; RESP 18; TEMP 36.1; O2SAT 97
[2021-04-11 14:47] VITALS: BP 104/68; PULSE 62; RESP 16; O2SAT 99
--- NOTE | 2021-04-11 15:41 | ED.BACK ---
HPI - Back Pain/Injury General Chief Complaint: Back Pain/Injury Stated Complaint: Lower Left Rib Pain Time Seen by Provider: 04/11/21 15:09 Source: patient Mode of arrival: ambulatory Limitations: no limitations History of Present Illness HPI Narrative: Patient is a 56-year-old female complaining of left lower back pain that started about a week ago worse today. Patient states his pain is an 8 out of 10, dull, aching, worse with movement. Patient states that she takes Percocet for her chronic back pain, and took 1 earlier today. Denies any recent injury. Denies any weakness, numbness or incontinence. Denies any urinary symptoms. Denies any fever or chills. Related Data Home Medications Medication Instructions Recorded Confirmed Marijuana See Rx Instructions .ROUTE 11/13/19 04/06/21 .COMPLEX PRN Narcan 4 mg INTRANASAL PRN PRN 11/13/19 04/06/21 alprazolam 0.5 mg PO TID PRN 11/13/19 04/06/21 atorvastatin 20 mg PO HS 11/13/19 04/06/21 cyclobenzaprine 10 mg PO TID PRN 11/13/19 04/06/21 diclofenac sodium 75 mg PO BID 11/13/19 04/06/21 duloxetine 60 mg PO BID 11/13/19 04/06/21 furosemide 40 mg PO DAILY 11/13/19 04/06/21 metoprolol succinate 50 mg PO HS 11/13/19 04/06/21 oxycodone-acetaminophen 1 tablet PO Q8H PRN 11/13/19 04/06/21 potassium chloride 40 meq PO DAILY 11/13/19 04/06/21 pregabalin [Lyrica] 150 mg PO BID 11/13/19 04/06/21 Anoro Ellipta 1 inh INHALATION DAILY 04/06/21 04/06/21 albuterol sulfate 2 puff INHALATION Q6H PRN 04/06/21 04/06/21 aspirin 81 mg PO DAILY 04/06/21 04/06/21 cholecalciferol (vitamin D3) 250 mcg PO BID 04/06/21 04/06/21 [Dialyvite Vitamin D] hydrochlorothiazide 25 mg PO DAILY 04/06/21 04/06/21 hydroxyzine HCl 25 mg PO HS 04/06/21 04/06/21 levothyroxine [Euthyrox] 125 mcg PO DAILY 04/06/21 04/06/21 losartan 50 mg PO HS 04/06/21 04/06/21 trazodone 100 mg PO HS 04/06/21 04/06/21 Allergies Allergy/AdvReac Type Severity Reaction Status Date / Time ciprofloxacin Allergy Unknown Hives / Verified 04/11/21 14:09 Red Face Penicillins Allergy Unknown Unknown Verified 04/11/21 14:09 lisinopril AdvReac Intermediate COUGH Verified 04/11/21 14:09 Review of Systems Review of Systems: All systems reviewed & are unremarkable except as noted in HPI and below Constitutional: Constitutional: Denies body ache(s), Denies chills, Denies excessive sweating, Denies fatigue, Denies fever(s), Denies headache(s), Denies lethargy, Denies malaise, Denies weakness and Denies weight loss Eyes: Eyes: Denies blurry vision, Denies change in vision and Denies loss of vision ENT: Denies dizziness, Denies ear discharge, Denies headache(s), Denies lip swelling, Denies epistaxis, Denies nasal congestion, Denies neck pain, Denies throat swelling and Denies tongue swelling Cardiovascular: Cardiovascular: Denies chest pain, Denies chest pain at rest, Denies chest pain with activity, Denies diaphoresis, Denies rapid heart rate, Denies edema, Denies irregular heart rhythm, Denies lightheadedness, Denies palpitations, Denies dyspnea and Denies dyspnea on exertion Respiratory: Respiratory: Denies chest congestion, Denies cough, Denies hemoptysis, Denies dyspnea and Denies dyspnea on exertion Gastrointestinal: Gastrointestinal: Denies abdominal pain, Denies melena, Denies hematochezia, Denies diarrhea, Denies nausea, Denies vomiting and Denies hematemesis Musculoskeletal: Musculoskeletal: Denies abnormal gait, Denies deformity, Denies joint swelling, Denies limited range of motion, Denies neck pain and Denies numbness Neurologic: Denies Abnormal speech present, Denies abnormal gait, Denies confusion, Denies dizziness, Denies headache(s), Denies focal weakness, Denies loss of vision, Denies numbness, Denies Other visual disturbances, Denies Sensory deficit (Neuro) and Denies weakness Psychiatric: Psychiatric: Denies confusion, Denies depression, Denies auditory hallucinations, Denies homicidal ideation and Denies suicidal ideation Endocrin
[2021-04-11] MEDS: KETOROLAC 30 MG/ML VIAL (*BKC) IM (15:50)
--- NOTE | 2021-04-11 15:53 | PC.NURSE ---
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
[2021-04-11 16:20] VITALS: TEMP 36.1
[2021-04-11 16:34] VITALS: BP 99/63; PULSE 61; RESP 16; O2SAT 99
== END 2021-04-11 16:47 | disposition home or self-care (01) ==
PROVIDERS: Emergency Provider Emergency Medicine; PCP Family Medicine
DX: M54.16 Radiculopathy, lumbar region (principal); J44.9 Chronic obstructive pulmonary disease, unspecified; E78.5 Hyperlipidemia, unspecified; I10 Essential (primary) hypertension; E03.9 Hypothyroidism, unspecified; G62.9 Polyneuropathy, unspecified; M79.7 Fibromyalgia; M19.90 Unspecified osteoarthritis, unspecified site; F32.9 Major depressive disorder, single episode, unspecified; F41.9 Anxiety disorder, unspecified; G47.30 Sleep apnea, unspecified; Z86.718 Personal history of other venous thrombosis and embolism; Z87.19 Personal history of other diseases of the digestive system; Z87.440 Personal history of urinary (tract) infections; F17.210 Nicotine dependence, cigarettes, uncomplicated
CPT/HCPCS: 72100; 96372; 99283; J1885

== ENCOUNTER 2021-04-20 18:02 | Inpatient (IN) | payer OTHER, SELFPAY ==
[2021-04-20] VITALS (10 sets, daily range): BP systolic 93–139; BP diastolic 50–98; PULSE 58–115; RESP 12–24; TEMP 37.3–39.4; O2SAT 92–96; BMI 47.8
--- NOTE | ~2021-04-20 | XR_ITS ---
EXAMINATION: XR chest 1V portable 04/20/2021 18:23 INDICATION: Fever and shortness of breath. PROCEDURE: AP portable chest COMPARISON: Comparison to multiple prior studies sequentially, with oldest reviewed study dated 12/23. FINDINGS: The lungs are clear. The cardiomediastinal silhouette is within normal limits. There are no pleural effusions. There is no pneumothorax suspected. IMPRESSION: 1: NO ACUTE CARDIOPULMONARY DISEASE. Reviewed, dictated and finalized at location A.
--- NOTE | ~2021-04-20 | US_ITS ---
US abdomen limited INDICATION: Elevated liver function tests PROCEDURE: Realtime right upper abdominal ultrasound. COMPARISON: No prior studies for comparison. FINDINGS: The pancreas is normal without focal mass or pancreatic ductal dilation. Liver echotexture is normal without focal mass. There is normal directional flow in the portal vein. The gallbladder is normal without stones, gallbladder wall thickening or pericholecystic fluid. Comm on bile duct measures 3 mm. No sonographic Zheng's sign. IMPRESSION: 1: Unremarkable limited abdominal ultrasound. Reviewed, dictated and finalized at location A.
--- NOTE | ~2021-04-20 | US_ITS ---
EXAMINATION: US renal BI EXAM DATE: 04/21/2021 15:05 INDICATION: Acute kidney insufficiency. TECHNIQUE: Multiple grayscale and Doppler images of the kidneys were obtained (by a technologist who performed the scan) and subsequently reviewed. Comparison is made to prior examination from 10/30/2020 . FINDINGS: Right kidney: There is normal contour and echogenicity. It measures 10.7 x 5.2 x 5.2 centimeters. T here are no focal renal lesions identified. There is no hydronephrosis. Left kidney: There is normal contour and echogenicity. It measures 12.8 x 10.0 x 5.2 centimeters. T here are no focal renal lesions identified. There is no hydronephrosis. Bladder unremarkable. IMPRESSION: 1. Sonographically unremarkable kidneys. Reviewed, dictated and finalized at location B.
--- NOTE | 2021-04-20 18:12 | ECG_ITS ---
Measurements Intervals [place] Rate: 113 P: 38 SC: 155 QRS: 57 QRSD: 82 T: 23 QT: 327 QTc: 449 Interpretive Statements SINUS TACHYCARDIA MINIMAL Q WAVES- INFERIOR LEADS NONSPECIFIC ST ABNORMALITY- DIFFUSE LEADS BASELINE ARTIFACT- I, II, III, AVR, AVL, AVF, V1-V2, V6 ABNORMAL ECG Electronically Signed On 04-20-2021 20:40:27 CDT by [place] Sam D.O.
[2021-04-20 19:09] LABS: Basophils Percent Auto 0.3 % (0.2-1.2); Eosinophils Absolute Auto 0.2 K/mm3 (0-0.3); Eosinophils Percent Auto 1.7 % (0-4.4); Hematocrit 37.7 % (37.0-47.0); Hemoglobin 12.3 g/dL (12.0-15.0); Immature Granulocyte Absolute 0.13 K/mm3 (0.00-0.031); Immature Granulocyte Percent A 1.1 % (0-0.5); Lymphocytes Absolute Auto 0.51 K/mm3 (0.9-3.2); Lymphocytes Percent Auto 4.2 % (18.3-44.2); Mean Corpuscular HGB Conc 32.6 g/dl (32-36); Mean Corpuscular Hemoglobin 29.6 pg (26-34); Mean Corpuscular Volume 90.6 fl (80-100); Mean Platelet Volume 11.9 fl (7.4-10.4); Monocytes Absolute Auto 0.5 K/mm3 (0.1-0.6); Neutrophils Absolute Auto 10.7 K/mm3 (1.3-6.7); Neutrophils Percent Auto 88.7 % (45.5-73.1); Platelet Count Result 145 k/mm3 (150-375); Red Blood Count 4.16 M/mm3 (4.2-5.4); Red Cell Distribution Width 15.1 % (11.5-14.5)
[2021-04-20] MEDS: ACETAMINOPHEN 500 MG TABLET 1000 MG PO (19:14)
[2021-04-20] MEDS: LACTATED RINGERS 1,000 ML 999 ML IV CONT ×2 (19:15)
[2021-04-20 19:19] LABS: INR 1.1; Prothrombin Time 13.7 Seconds (11.1-14.7)
[2021-04-20 19:20] LABS: Partial Thromboplastin Time 33.6 SECONDS (22.3-36.8)
[2021-04-20 19:22] LABS: Lactic Acid Reflex 1.9 mmol/L (0.7-2.1)
[2021-04-20 19:26] LABS: EDCOVIDSCREEN Negative (Negative)
[2021-04-20 19:26] LABS: Alanine Aminotransferase 60 U/L (4-35); Albumin Level 3.7 g/dL (3.5-5.1); Alkaline Phosphatase 123 U/L (38-126); Anion Gap 9 mmol/L (8-16); Aspartate Amino Transferase 46 U/L (14-36); Bilirubin,Total 1.4 mg/dL (0.2-1.3); Blood Urea Nitrogen 31 mg/dL (7-17); Carbon Dioxide 26 mmol/L (22-30); Chloride 107 mmol/L (98-107); Estimated CRCL calculation 35 ml/min; Estimated Glomerular Filt Rate 21; Glucose 146 mg/dL (65-110); Lactate Dehydrogenase 645 U/L (313-618); Potassium 3.5 mmol/L (3.4-5.0); Sodium 142 mmol/L (137-145)
--- NOTE | 2021-04-20 19:46 | ED.GENADULT ---
HPI - General Adult General Chief complaint: Fever Stated complaint: fever/altered Time Seen by Provider: 04/20/21 18:23 Source: patient Mode of arrival: ambulatory Limitations: no limitations History of Present Illness HPI narrative: 56-year-old female Complains of feeling very fatigued and generally achy all day long She was not aware that she had a fever until we told her about 1 here She has a mild scratchy throat, her typical cough due to COPD, some nausea but no vomiting or diarrhea, and new left-sided CVA tenderness and pain, mild dysuria Related Data Home Medications Medication Instructions Recorded Confirmed Marijuana See Rx Instructions .ROUTE 11/13/19 04/06/21 .COMPLEX PRN Narcan 4 mg INTRANASAL PRN PRN 11/13/19 04/06/21 alprazolam 0.5 mg PO TID PRN 11/13/19 04/06/21 atorvastatin 20 mg PO HS 11/13/19 04/06/21 cyclobenzaprine 10 mg PO TID PRN 11/13/19 04/06/21 diclofenac sodium 75 mg PO BID 11/13/19 04/06/21 duloxetine 60 mg PO BID 11/13/19 04/06/21 furosemide 40 mg PO DAILY 11/13/19 04/06/21 metoprolol succinate 50 mg PO HS 11/13/19 04/06/21 oxycodone-acetaminophen 1 tablet PO Q8H PRN 11/13/19 04/06/21 potassium chloride 40 meq PO DAILY 11/13/19 04/06/21 pregabalin [Lyrica] 150 mg PO BID 11/13/19 04/06/21 Anoro Ellipta 1 inh INHALATION DAILY 04/06/21 04/06/21 albuterol sulfate 2 puff INHALATION Q6H PRN 04/06/21 04/06/21 aspirin 81 mg PO DAILY 04/06/21 04/06/21 cholecalciferol (vitamin D3) 250 mcg PO BID 04/06/21 04/06/21 [Dialyvite Vitamin D] hydrochlorothiazide 25 mg PO DAILY 04/06/21 04/06/21 hydroxyzine HCl 25 mg PO HS 04/06/21 04/06/21 levothyroxine [Euthyrox] 125 mcg PO DAILY 04/06/21 04/06/21 losartan 50 mg PO HS 04/06/21 04/06/21 trazodone 100 mg PO HS 04/06/21 04/06/21 Allergies Allergy/AdvReac Type Severity Reaction Status Date / Time ciprofloxacin Allergy Unknown Hives / Verified 04/20/21 18:10 Red Face Penicillins Allergy Unknown Unknown Verified 04/20/21 18:10 lisinopril AdvReac Intermediate COUGH Verified 04/20/21 18:10 Review of Systems Review of Systems: All systems reviewed & are unremarkable except as noted in HPI and below Constitutional: Constitutional: Reports no additional constitutional complaints, Denies chills, Reports fatigue, Denies fever(s), Denies headache(s) and Reports weakness Eyes: Eyes: Reports no additional eye complaints, Denies change in vision and Denies photophobia ENT: Denies headache(s) and Denies sore throat Cardiovascular: Cardiovascular: Denies chest pain and Denies dyspnea Respiratory: Respiratory: Denies chest congestion, Reports cough, Denies dyspnea and Denies wheezing Gastrointestinal: Gastrointestinal: Denies abdominal pain, Denies diarrhea, Reports nausea and Denies vomiting Genitourinary: Genitourinary: Denies hematuria, Denies urinary frequency, Reports nocturia, Denies dysuria and Reports flank pain Musculoskeletal: Musculoskeletal: Reports myalgias, Denies deformity, Reports arthralgias, Denies joint swelling and Denies numbness Integumentary/Breasts: Skin/Breast: Denies rash and Denies wounds Neurologic: Denies headache(s), Denies focal weakness and Denies numbness Psychiatric: Psychiatric: Reports no additional psychiatric complaints Endocrine: Endocrine: Reports no additional endocrine complaints Hematologic/Lymphatic: Hematologic/Lymphatic: Reports no additional hematologic/lymphatic complaints Allergic/Immunologic: Allergic/Immunologic: Reports no additional allergic/immunologic complaints [facility] Past Medical History Medical History Anxiety Arthritis Back pain COPD (chronic obstructive pulmonary disease) Depression Diverticulitis DVT (deep venous thrombosis) Eczema Fibromyalgia History of rectal polyps HLD (hyperlipidemia) HTN (hypertension) Hypothyroidism Peripheral neuropathy Sleep apnea with use of continuous positive airway pressure (CPAP) UTI (urinary trac
[2021-04-20 20:57] LABS: Add Urine Microscopic? YES; Amorphous Sediment Urine Few; Appearance Urine Cloudy (Clear); Bacteria Urine 4+ /hpf; Bilirubin Urine Negative (Negative); Blood Urine 2+ (Negative); Color Urine Amber (Yellow); Glucose Urine UA Negative (Negative); Ketones Urine Negative (Negative); Leukocyte Esterase Ur 3+ LEU/UL (Negative); Mucus Urine Rare /lpf; Nitrate Urine Positive (Negative); Protein Urine 3+ mg/dL (Negative); RBC Urine 21-50 /hpf (0-2); Specific Grav Ur 1.011 (1.001-1.035); Squamous Epithelial Cell Urine Many /hpf (Few); Urobilinogen Urine Negative mg/dL (<2.0); WBC Clumps Urine Present /HPF; WBC Urine >75 /hpf
[2021-04-20 21:06] LABS: Amphetamine Screen Urine Negative (Negative); Barbiturate Screen Urine Negative (Negative); Benzodiazepines Screen Urine Positive (Negative); Cannabinoid Screen Urine Positive (Negative); Cocaine Screen Urine Negative (Negative); Methadone Screen Urine Negative (Negative); Opiate Screen Urine Negative (Negative); Phencyclidine Screen Urine Negative (Negative)
--- NOTE | 2021-04-20 21:10 | PM.IMHP ---
H&P: HPI History of Present Illness Date/Time: 04/20/21 21:10 Chief Complaint: Fever Narrative: 56-year-old female with past medical history of fibromyalgia, hypertension, hyperlipidemia, obstructive sleep apnea, chronic kidney disease stage 4 who presented to the ER with fever and altered mental status. She states that yesterday she began having chills and a subjective fever. Her temperature measured as normal at home but she spiked a temp to 102.9 in the ER. She had some associated nausea but no vomiting. She does have irritable bowel syndrome but has not noticed any changes from her baseline which tends to be some loose stool. She she has had no hematochezia, or melena. She has not noticed any dysuria but has had some increased urinary frequency with occasional urinary incontinence. She noticed some new left flank pain starting yesterday as well. She has not noticed any eliciting her relieving his symptoms for the pain. The pain was a 7/10 in intensity. She was also having constant headache at the base of her skull today. She reports feeling extremely thirsty. She has been vaccinated is against COVID-19 with [employer] vaccine 2nd vaccine was November. She has not had any significant respiratory symptoms. She is being tested for COPD and has a PFT and 6 minute walk test scheduled for April 24. She reports that she is chronically short of breath but unchanged from baseline. She has not had any upper respiratory symptoms. She reports chronic picking at her skin with scabs on her lower extremity. She reports that she picks at her skin to deal with her anxiety. She reports feeling moderately anxious currently. She denies any suicidal or homicidal ideation but does have chronic depression. She reports chronic difficulty with word finding is a gets worse when she is ill. She reports that is part of her fibromyalgia. Review of Systems Review of Systems: 12 systems were reviewed with pertinent positives and negatives per HPI. Except as documented in the HPI, all other systems were reviewed and are negative. [facility] Past Medical History Medical History (Updated 04/20/21 @ 23:40 by Shayy Pepe DO) Anxiety Arthritis Back pain Chronic kidney disease, stage 3 COPD (chronic obstructive pulmonary disease) PFTs and 6 minute walk scheduled April 24, 2021 Depression Diverticulosis DVT (deep venous thrombosis) Eczema Fibromyalgia HLD (hyperlipidemia) HTN (hypertension) Hypothyroidism Peripheral neuropathy Psoriasis Sepsis Sleep apnea with use of continuous positive airway pressure (CPAP) UTI (urinary tract infection) Surgical History Surgical History (Updated 04/20/21 @ 23:20 by Shayy Pepe DO) History of colonoscopy with polypectomy (~2018) History of meniscectomy of left knee Hx of section Status post open reduction with internal fixation of fracture Left ankle fracture Family History Family History Father Hypertension Alcoholic cirrhosis, Onset Age: 70 Grandparent Hypertension Emphysema lung Mother Patient's mother is in good health Social History Social History (Updated 04/20/21 @ 23:35 by Shayy Pepe DO) Social History: She lives in [place] with her of 3 years. She has 2 adult daughters age 22 and 28 were in good health. 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 She smokes a pack of cigarettes per day and started when he was a teenager. She has a 25 pack per year smoking history. She drinks 2 alcoholic beverages a year. Primary care physician: Dr. Silva Nevarez Code status: Full code Surrogate decision maker: Smoking packs per day: 1 Smoking cigarettes per day: 20.0 Years smoked: 15 Smoking pack-years: 15.00 Smoking status: Current some day smoker Tobacco type: cigarettes Second hand tobacco smoke expo
--- NOTE | 2021-04-20 22:55 | ADMGEN ---
This patient, Jagruti Thao, was admitted to 3 [facility] Surg Room 313-01. Patient/family oriented to hospital policies and general routines including ID bracelet, bed and alarms, visiting hours, pain management, procedures, bathroom and other care routines, personal items, smoking policy, room service/diet, and visiting hours. Information on how to activate the Rapid Response Team has been discussed. Patient/Family are encouraged to report perceived risks to care and to ask questions if they do not understand what they are told or what they should do.
[2021-04-21] MEDS: oxyCODONE/ACETAMINOPHEN (*CRX) 5-325 MG TABLET 1 TABLET PO ×4 (02:59→18:23)
[2021-04-21] MEDS: LACTATED RINGERS 1,000 ML 150 ML IV CONT ×2 (03:00→10:33)
[2021-04-21 05:27] VITALS: TEMP 38.4
[2021-04-21] MEDS: ACETAMINOPHEN 325 MG TABLET 650 MG PO (05:27)
[2021-04-21 06:00] VITALS: BP 118/48; PULSE 106; RESP 20; TEMP 38.6; O2SAT 93
[2021-04-21] MEDS: LEVOTHYROXINE SODIUM 125 MCG TABLET PO (06:27)
[2021-04-21 06:57] LABS: Basophils Percent Auto 0.2 % (0.2-1.2); Eosinophils Absolute Auto 0.1 K/mm3 (0-0.3); Hematocrit 33.9 % (37.0-47.0); Lymphocytes Absolute Auto 0.69 K/mm3 (0.9-3.2); Lymphocytes Percent Auto 6.9 % (18.3-44.2); Mean Corpuscular HGB Conc 32.4 g/dl (32-36); Mean Corpuscular Hemoglobin 29.4 pg (26-34); Mean Corpuscular Volume 90.6 fl (80-100); Mean Platelet Volume 12.1 fl (7.4-10.4); Monocytes Absolute Auto 0.4 K/mm3 (0.1-0.6); Monocytes Percent Auto 3.8 % (2.6-8.5); Neutrophils Absolute Auto 8.7 K/mm3 (1.3-6.7); Neutrophils Percent Auto 87.1 % (45.5-73.1); Platelet Count Result 120 k/mm3 (150-375); Red Blood Count 3.74 M/mm3 (4.2-5.4); Red Cell Distribution Width 15.2 % (11.5-14.5)
[2021-04-21 07:01] LABS: Anion Gap 9 mmol/L (8-16); Blood Urea Nitrogen 28 mg/dL (7-17); Calcium 8.5 mg/dL (8.4-10.2); Carbon Dioxide 28 mmol/L (22-30); Chloride 105 mmol/L (98-107); Estimated CRCL calculation 41 ml/min; Estimated Glomerular Filt Rate 25; Glucose 126 mg/dL (65-110); Potassium 3.6 mmol/L (3.4-5.0); Sodium 142 mmol/L (137-145)
[2021-04-21] MEDS: PREGABALIN (*CRX) 75 MG CAPSULE 150 MG PO ×2 (08:54→17:28)
[2021-04-21] MEDS: CHOLECALCIFEROL 1,000 UNITS TABLET 5000 UNITS PO ×2 (08:55→21:34)
[2021-04-21] MEDS: POTASSIUM CHLORIDE 20 MEQ TABLET.ER 40 MEQ PO (08:56)
[2021-04-21] MEDS: NICOTINE (*PBKC) 21 MG PATCH 1 PATCH TRANSDERM (08:56)
[2021-04-21] MEDS: ASPIRIN 81 MG ENTERIC TABLET PO (08:57)
[2021-04-21] MEDS: ATORVASTATIN 20 MG TABLET PO (08:57)
[2021-04-21] MEDS: DULoxetine HCL 30 MG CAPSULE.DR 60 MG PO ×2 (08:57→21:34)
[2021-04-21] MEDS: ENOXAPARIN 40 MG/0.4 ML SYRINGE SUB-Q (08:57)
[2021-04-21] MEDS: UMECLIDINIUM/VILANTEROL 62.5-25 MCG ELLIPTA 1 PUFF INHALATION (08:59)
--- NOTE | 2021-04-21 12:46 | PM.IMPN ---
Progress Note: A&P Assessment and Plan (1) Sepsis: Qualifiers: Acute renal failure type: unspecified Sepsis acute organ dysfunction status: with acute organ dysfunction Sepsis type: sepsis due to unspecified organism Severe sepsis acute organ dysfunction type: acute renal failure Severe sepsis shock status: without septic shock Qualified Code(s): A41.9 - Sepsis, unspecified organism; R65.20 - Severe sepsis without septic shock; N17.9 - Acute kidney failure, unspecified Code(s): A41.9 - Sepsis, unspecified organism Status: Acute Assessment and Plan: Patient has sepsis due to left-sided pyelonephritis. Sepsis criteria on admission include tachycardia, tachypnea, hyperbilirubinemia, transaminitis, MISAEL and leukocytosis. Rapid COVID swab negative. Cultures are pending. Continue empiric antibiotic therapy with Rocephin. Monitor for resolution of sepsis symptoms (2) Pyelonephritis: Code(s): N12 - Tubulo-interstitial nephritis, not specified as acute or chronic Status: Acute Assessment and Plan: Patient has sepsis due to left-sided pyelonephritis. UA noted. Urine cultures and blood cultures are pending. Continue empiric antibiotic therapy with Rocephin. Monitor temperature curve. WBC trending down. Adjust abx pending culture results. (3) Acute kidney injury superimposed on chronic kidney disease: Code(s): N17.9 - Acute kidney failure, unspecified; N18.9 - Chronic kidney disease, unspecified Status: Acute Assessment and Plan: Patient with MISAEL on chronic kidney disease due to dehydration and sepsis. Cr values were normal in 2018 but have been in the 1.4-1.6 range since November 2019. Cr here 2.4 on admission. Renal function improving. Will continue IV fluid rehydration. Check renal US and TCK. (4) Elevated transaminase level: Code(s): R74.01 - Elevation of levels of liver transaminase levels Status: Acute Assessment and Plan: AST/ALT mildly elevated on admission. TB mildly elevated as well. [place] related to the sepsis. Will check hepatitis panel given her CKD. Consider further workup if her hepatic function worsens. (5) Sleep apnea with use of continuous positive airway pressure (CPAP): Code(s): G47.30 - Sleep apnea, unspecified Status: Acute Assessment and Plan: Auto titrating CPAP/BiPAP has been ordered. Patient reports she is compliant with her home CPAP. She is compliant here as well (6) Tobacco abuse: Code(s): Z72.0 - Tobacco use Status: Acute Assessment and Plan: Patient was educated about the benefits of smoking cessation. (7) DVT prophylaxis: Code(s): Z29.9 - Encounter for prophylactic measures, unspecified Status: Acute Assessment and Plan: Lovenox. History of DVT in the past and was treated with Eliquis for 6 months back in 2019. Additional Plan f Subjective Date/time seen: 04/21/21 12:46 Interval history: 56yo female with CKD, HTN and INDIO here for fever and found to have UTI with sepsis. Patient still feels feverish and 'hot and cold'. She is drinking plenty of water and is voiding well. Eating some but not a lot. Mild nausea at times but no vomiting. No CP, SOB or cough. Still with the back pain mostly left sided. She received her 2nd COVID vaccine in November. LE dried wounds from cat scratches but also that she picks at the lesions. Exam Narrative: Tm 102.9 101.5 118/48 106 20 93% ra Gen - NARD lying almost flat in bed with CPAP in place HEENT - ncat, poor dentition Chest - CTA bilaterally, nml RR CV - RRR S1/S2 Abd - Soft, diffusely tender, +BS Back - mild L>R CVA tenderness Ext - No pedal edema; 2+ DP pulses bilaterally Neuro - Alert and oriented. Nonfocal exam. Psych - Nml mood and affect Skin - multiple dry small eschars to the bilateral shins Objective Data Vital Signs Vital Signs: Vital Signs - 24 hr 04/20/21 18:07 04/20/21 18
[2021-04-21 14:05] LABS: Creatine Kinase 85 U/L (30-135)
[2021-04-21 14:15] LABS: Complement C3 129 mg/dL (88-165)
[2021-04-21 14:16] VITALS: BP 105/45; PULSE 106; RESP 18; TEMP 37.2; O2SAT 96
[2021-04-21 15:27] LABS: Hepatitis B Surface Antigen Negative (Negative)
[2021-04-21 15:33] LABS: HAV RESULT Negative (Negative); Hepatitis B Core IgM Result Negative (Negative)
[2021-04-21 15:44] LABS: Hepatitis C Virus Antibody Negative (Negative)
[2021-04-21 17:44] LABS: Eosinophil Urine None Seen % (None Seen)
[2021-04-21 18:03] LABS: Creatinine Urine 46.2 mg/dL
[2021-04-21 18:15] LABS: Sodium Urine Random 39 meq/L
[2021-04-21] MEDS: LACTATED RINGERS 1,000 ML 125 ML IV CONT (18:41)
[2021-04-21 20:00] VITALS: PULSE 98; RESP 20; O2SAT 91
[2021-04-21] MEDS: MORPHINE SULFATE (*CRX) 2 MG/ML INJ IV PUSH (21:31)
[2021-04-21] MEDS: CYCLOBENZAPRINE HCL 10 MG TABLET PO (21:33)
[2021-04-21] MEDS: traZODone HCL 50 MG TABLET 100 MG PO (21:35)
[2021-04-21 21:36] VITALS: PULSE 82
[2021-04-21] MEDS: METOPROLOL SUCCINATE EXT REL 50 MG TABCR PO (21:36)
[2021-04-21] MEDS: hydrOXYzine HCL 25 MG TABLET PO (21:36)
[2021-04-21 22:00] VITALS: BP 125/75; PULSE 98; RESP 20; TEMP 36.9; O2SAT 91
[2021-04-22] VITALS (11 sets, daily range): BP systolic 111–124; BP diastolic 61–74; PULSE 77–96; RESP 18–20; TEMP 36.6–38.2; O2SAT 94–96
[2021-04-22] MEDS: MORPHINE SULFATE (*CRX) 2 MG/ML INJ IV PUSH ×3 (01:40→15:18)
[2021-04-22] MEDS: LACTATED RINGERS 1,000 ML 125 ML IV CONT (04:56)
[2021-04-22] MEDS: ACETAMINOPHEN 325 MG TABLET 650 MG PO ×2 (04:57→14:13)
[2021-04-22] MEDS: LEVOTHYROXINE SODIUM 125 MCG TABLET PO (05:28)
[2021-04-22 06:18] LABS: Basophils Percent Auto 0.2 % (0.2-1.2); Eosinophils Percent Auto 0.8 % (0-4.4); Hematocrit 30.8 % (37.0-47.0); Hemoglobin 10.1 g/dL (12.0-15.0); Immature Granulocyte Absolute 0.04 K/mm3 (0.00-0.031); Immature Granulocyte Percent A 0.8 % (0-0.5); Lymphocytes Absolute Auto 0.84 K/mm3 (0.9-3.2); Lymphocytes Percent Auto 16.6 % (18.3-44.2); Mean Corpuscular HGB Conc 32.8 g/dl (32-36); Mean Corpuscular Hemoglobin 29.4 pg (26-34); Mean Corpuscular Volume 89.5 fl (80-100); Mean Platelet Volume 12.1 fl (7.4-10.4); Monocytes Absolute Auto 0.3 K/mm3 (0.1-0.6); Monocytes Percent Auto 4.9 % (2.6-8.5); Neutrophils Absolute Auto 3.9 K/mm3 (1.3-6.7); Neutrophils Percent Auto 76.7 % (45.5-73.1); Platelet Count Result 97 k/mm3 (150-375); Red Blood Count 3.44 M/mm3 (4.2-5.4); Red Cell Distribution Width 15.2 % (11.5-14.5); White Blood Count 5.1 K/mm3 (4.5-10.0)
[2021-04-22 06:26] LABS: INR 1.2; Prothrombin Time 14.6 Seconds (11.1-14.7)
[2021-04-22 06:41] LABS: Alanine Aminotransferase 41 U/L (4-35); Albumin Level 3.3 g/dL (3.5-5.1); Alkaline Phosphatase 125 U/L (38-126); Anion Gap 11 mmol/L (8-16); Aspartate Amino Transferase 27 U/L (14-36); Blood Urea Nitrogen 23 mg/dL (7-17); Carbon Dioxide 23 mmol/L (22-30); Chloride 103 mmol/L (98-107); Estimated CRCL calculation 47 ml/min; Estimated Glomerular Filt Rate 29; Glucose 108 mg/dL (65-110); Magnesium 1.3 mg/dL (1.6-2.3); Potassium 3.5 mmol/L (3.4-5.0); Sodium 137 mmol/L (137-145)
[2021-04-22] MEDS: MAGNESIUM SULF 2 GM/WATER 50ML 2 GM/50 ML BAG IVPB (07:51)
[2021-04-22] MEDS: POTASSIUM CHLORIDE 20 MEQ TABLET.ER 40 MEQ PO (08:13)
[2021-04-22] MEDS: DULoxetine HCL 30 MG CAPSULE.DR 60 MG PO ×2 (08:13→20:45)
[2021-04-22] MEDS: ASPIRIN 81 MG ENTERIC TABLET PO (08:13)
[2021-04-22] MEDS: CHOLECALCIFEROL 1,000 UNITS TABLET 5000 UNITS PO ×2 (08:13→20:45)
[2021-04-22] MEDS: ATORVASTATIN 20 MG TABLET PO (08:14)
[2021-04-22] MEDS: NICOTINE (*PBKC) 21 MG PATCH 1 PATCH TRANSDERM (08:14)
[2021-04-22] MEDS: ENOXAPARIN 40 MG/0.4 ML SYRINGE SUB-Q (08:14)
[2021-04-22] MEDS: PREGABALIN (*CRX) 75 MG CAPSULE 150 MG PO ×2 (08:17→17:29)
[2021-04-22] MEDS: UMECLIDINIUM/VILANTEROL 62.5-25 MCG ELLIPTA 1 PUFF INHALATION (08:25)
[2021-04-22] MEDS: oxyCODONE/ACETAMINOPHEN (*CRX) 5-325 MG TABLET 1 TABLET PO ×2 (10:33→20:51)
--- NOTE | 2021-04-22 13:44 | PM.IMPN ---
Progress Note: A&P Assessment and Plan (1) Sepsis: Qualifiers: Acute renal failure type: unspecified Sepsis acute organ dysfunction status: with acute organ dysfunction Sepsis type: sepsis due to unspecified organism Severe sepsis acute organ dysfunction type: acute renal failure Severe sepsis shock status: without septic shock Qualified Code(s): A41.9 - Sepsis, unspecified organism; R65.20 - Severe sepsis without septic shock; N17.9 - Acute kidney failure, unspecified Code(s): A41.9 - Sepsis, unspecified organism Status: Acute Assessment and Plan: Patient has sepsis due to left-sided pyelonephritis. Sepsis criteria on admission include tachycardia, tachypnea, hyperbilirubinemia, transaminitis, MISAEL and leukocytosis. Rapid COVID swab negative. BCx growing Gram negative bacilli. UCx growing EColi. Continue Rocephin and advance to 2gm. Monitor for resolution of sepsis symptoms (2) Pyelonephritis: Code(s): N12 - Tubulo-interstitial nephritis, not specified as acute or chronic Status: Acute Assessment and Plan: Patient has sepsis due to left-sided pyelonephritis. UA noted. Urine cultures growing EColi. BCx (2of2) are also positive. Continue Rocephin and advance to 2gm. Still with fevers but temperature curve trending down. WBC normal now. (3) Acute kidney injury superimposed on chronic kidney disease: Code(s): N17.9 - Acute kidney failure, unspecified; N18.9 - Chronic kidney disease, unspecified Status: Acute Assessment and Plan: Patient with MISAEL on chronic kidney disease due to dehydration and sepsis. Cr values were normal in 2018 but have been in the 1.4-1.6 range since November 2019. Cr here 2.4 on admission. Renal US normal. Renal function improving. Will continue IV fluid rehydration. (4) Elevated transaminase level: Code(s): R74.01 - Elevation of levels of liver transaminase levels Status: Acute Assessment and Plan: AST/ALT/Tbili mildly elevated on admission. [place] related to the sepsis. Levels trending down. Hepatitis panel negative. (5) Thrombocytopenia: Code(s): D69.6 - Thrombocytopenia, unspecified Status: Acute Assessment and Plan: Plt count low on admission felt related to the sepsis. Plt count dropped to 97K. Will follow (6) Sleep apnea with use of continuous positive airway pressure (CPAP): Code(s): G47.30 - Sleep apnea, unspecified Status: Acute Assessment and Plan: Auto titrating CPAP/BiPAP has been ordered. Patient reports she is compliant with her home CPAP. She is compliant here as well (7) Tobacco abuse: Code(s): Z72.0 - Tobacco use Status: Acute Assessment and Plan: Patient was educated about the benefits of smoking cessation. (8) DVT prophylaxis: Code(s): Z29.9 - Encounter for prophylactic measures, unspecified Status: Acute Assessment and Plan: Lovenox. History of DVT in the past and was treated with Eliquis for 6 months back in 2019. Subjective Date/time seen: 04/22/21 13:44 Interval history: 56yo female with CKD, HTN and INDIO here for fever and found to have UTI with septicemia. Still feels feverish. Also will with back pain. No n/v. Eating okay. No CP but feels SOB. Did tolerate the mask last night. Exam Narrative: Tm 100.8 100.4 118/67 77 18 96% ra Gen - NARD lying in bed with nasal CPAP in place Chest - CTA bilaterally, nml RR CV - RRR S1/S2 Abd - Soft, diffusely tender L>R, +BS Back - mild Left CVA tenderness Ext - No pedal edema Neuro - Alert and oriented. Nonfocal exam. Skin - multiple dry small eschars to the bilateral shins Objective Data Vital Signs Vital Signs: Vital Signs - 24 hr 04/21/21 14:16 04/21/21 20:00 04/21/21 21:36 Temperature 98.9 F Pulse Rate 106 H 98 82 Respiratory Rate 18 20 Blood Pressure 105/45 L Pulse Oximetry 96 91 04/21/21 22:00 04/22/21 04:57
[2021-04-22] MEDS: LACTATED RINGERS 1,000 ML 75 ML IV CONT (15:14)
[2021-04-22] MEDS: CYCLOBENZAPRINE HCL 10 MG TABLET PO (15:28)
[2021-04-22] MEDS: hydrOXYzine HCL 25 MG TABLET PO (20:46)
[2021-04-22] MEDS: METOPROLOL SUCCINATE EXT REL 50 MG TABCR PO (20:46)
[2021-04-22] MEDS: traZODone HCL 50 MG TABLET 100 MG PO (20:46)
[2021-04-23 03:55] VITALS: BP 182/83; PULSE 94; RESP 24; TEMP 37.6; O2SAT 95
[2021-04-23] MEDS: oxyCODONE/ACETAMINOPHEN (*CRX) 5-325 MG TABLET 1 TABLET PO ×3 (03:57→21:02)
[2021-04-23] MEDS: LACTATED RINGERS 1,000 ML 75 ML IV CONT (04:00)
[2021-04-23] MEDS: MORPHINE SULFATE (*CRX) 2 MG/ML INJ IV PUSH (04:53)
[2021-04-23 05:33] VITALS: BP 137/61; PULSE 91; RESP 18; TEMP 38; O2SAT 90
[2021-04-23] MEDS: ACETAMINOPHEN 325 MG TABLET 650 MG PO (05:35)
[2021-04-23] MEDS: LEVOTHYROXINE SODIUM 125 MCG TABLET PO (05:35)
[2021-04-23 06:49] LABS: Basophils Percent Auto 0.3 % (0.2-1.2); Eosinophils Absolute Auto 0.2 K/mm3 (0-0.3); Eosinophils Percent Auto 4.7 % (0-4.4); Hematocrit 30.3 % (37.0-47.0); Hemoglobin 9.6 g/dL (12.0-15.0); Immature Granulocyte Absolute 0.03 K/mm3 (0.00-0.031); Immature Granulocyte Percent A 0.9 % (0-0.5); Lymphocytes Percent Auto 26.6 % (18.3-44.2); Mean Corpuscular HGB Conc 31.7 g/dl (32-36); Mean Corpuscular Hemoglobin 28.3 pg (26-34); Mean Corpuscular Volume 89.4 fl (80-100); Mean Platelet Volume 12.3 fl (7.4-10.4); Monocytes Absolute Auto 0.3 K/mm3 (0.1-0.6); Monocytes Percent Auto 8.6 % (2.6-8.5); Neutrophils Percent Auto 58.9 % (45.5-73.1); Platelet Count Result 97 k/mm3 (150-375); Red Blood Count 3.39 M/mm3 (4.2-5.4); Red Cell Distribution Width 15.3 % (11.5-14.5); White Blood Count 3.4 K/mm3 (4.5-10.0)
[2021-04-23 07:06] LABS: Alanine Aminotransferase 45 U/L (4-35); Albumin Level 3.2 g/dL (3.5-5.1); Alkaline Phosphatase 169 U/L (38-126); Anion Gap 10 mmol/L (8-16); Aspartate Amino Transferase 45 U/L (14-36); Bilirubin,Total 0.8 mg/dL (0.2-1.3); Blood Urea Nitrogen 19 mg/dL (7-17); Calcium 8.5 mg/dL (8.4-10.2); Carbon Dioxide 24 mmol/L (22-30); Chloride 105 mmol/L (98-107); Estimated CRCL calculation 56 ml/min; Estimated Glomerular Filt Rate 36; Glucose 103 mg/dL (65-110); Potassium 3.9 mmol/L (3.4-5.0); Sodium 139 mmol/L (137-145)
[2021-04-23 08:00] VITALS: PULSE 91; RESP 18; O2SAT 90
[2021-04-23] MEDS: PREGABALIN (*CRX) 75 MG CAPSULE 150 MG PO ×2 (09:43→18:25)
[2021-04-23] MEDS: CHOLECALCIFEROL 1,000 UNITS TABLET 5000 UNITS PO ×2 (09:43→21:02)
[2021-04-23] MEDS: DULoxetine HCL 30 MG CAPSULE.DR 60 MG PO ×2 (09:43→21:02)
[2021-04-23] MEDS: NICOTINE (*PBKC) 21 MG PATCH 1 PATCH TRANSDERM (09:44)
[2021-04-23] MEDS: ASPIRIN 81 MG ENTERIC TABLET PO (09:44)
[2021-04-23] MEDS: POTASSIUM CHLORIDE 20 MEQ TABLET.ER 40 MEQ PO (09:44)
[2021-04-23] MEDS: ATORVASTATIN 20 MG TABLET PO (09:44)
[2021-04-23] MEDS: ENOXAPARIN 40 MG/0.4 ML SYRINGE SUB-Q (09:44)
[2021-04-23] MEDS: CYCLOBENZAPRINE HCL 10 MG TABLET PO (12:42)
[2021-04-23 14:00] VITALS: BP 128/75; PULSE 72; RESP 18; TEMP 36.8; O2SAT 95
--- NOTE | 2021-04-23 16:26 | PM.IMPN ---
Progress Note: A&P Assessment and Plan (1) Sepsis: Qualifiers: Acute renal failure type: unspecified Sepsis acute organ dysfunction status: with acute organ dysfunction Sepsis type: sepsis due to unspecified organism Severe sepsis acute organ dysfunction type: acute renal failure Severe sepsis shock status: without septic shock Qualified Code(s): A41.9 - Sepsis, unspecified organism; R65.20 - Severe sepsis without septic shock; N17.9 - Acute kidney failure, unspecified Code(s): A41.9 - Sepsis, unspecified organism Status: Acute Assessment and Plan: Patient has sepsis due to left-sided pyelonephritis. Sepsis criteria on admission include tachycardia, tachypnea, hyperbilirubinemia, transaminitis, MISAEL and leukocytosis. Rapid COVID swab negative. BCx growing Gram negative bacilli (1of2 EColi). UCx growing EColi. Continue Rocephin at 2gm daily dose. Monitor for resolution of sepsis symptoms. (2) Pyelonephritis: Code(s): N12 - Tubulo-interstitial nephritis, not specified as acute or chronic Status: Acute Assessment and Plan: Patient has sepsis due to left-sided pyelonephritis. UA noted. Urine cultures growing EColi. BCx (2of2) are also positive for EColi. Continue Rocephin at 2gm daily dose. Still with low grade fevers but temperature curve trending down. WBC low now. Continue to follow. (3) Acute kidney injury superimposed on chronic kidney disease: Code(s): N17.9 - Acute kidney failure, unspecified; N18.9 - Chronic kidney disease, unspecified Status: Acute Assessment and Plan: Patient with MISAEL on chronic kidney disease due to dehydration and sepsis. Cr values were normal in 2018 but have been in the 1.4-1.6 range since November 2019. Cr here 2.4 on admission. Renal US normal. Renal function improving with Cr 1,5 today. [place] that she is back to baseline so will stop IV fluids. (4) Elevated transaminase level: Code(s): R74.01 - Elevation of levels of liver transaminase levels Status: Acute Assessment and Plan: AST/ALT/Tbili mildly elevated on admission. [place] related to the sepsis. TBili normal now. AST/ALT only mildly elevated. Hepatitis panel negative. Follow. (5) Thrombocytopenia: Code(s): D69.6 - Thrombocytopenia, unspecified Status: Acute Assessment and Plan: Plt count low on admission at 145K felt related to the sepsis. Plt count dropped to 97K but now stable. Continue Lovenox for now. Will follow (6) Sleep apnea with use of continuous positive airway pressure (CPAP): Code(s): G47.30 - Sleep apnea, unspecified Status: Acute Assessment and Plan: Auto titrating CPAP/BiPAP has been ordered. Patient reports she is compliant with her home CPAP. She is compliant here as well (7) Tobacco abuse: Code(s): Z72.0 - Tobacco use Status: Acute Assessment and Plan: Patient was educated about the benefits of smoking cessation. (8) DVT prophylaxis: Code(s): Z29.9 - Encounter for prophylactic measures, unspecified Status: Acute Assessment and Plan: Lovenox. History of DVT in the past and was treated with Eliquis for 6 months back in 2019. Subjective Date/time seen: 04/23/21 16:26 Interval history: 56yo female with CKD, HTN and [place] here for fever and found to have UTI with septicemia. Was out of bed to the chair earlier. Still feels feverish at times. Minimal left back (kidney) pain. She does have (chronic) shootiing pain left low back down her left leg c/e with her chronic sciatica. She has been up walking to the BR. Exam Narrative: Tm 100.4 98.2 128/75 72 18 95% ra Gen - NARD lying in bed with nasal CPAP in place Chest - CTA bilaterally, nml RR CV - RRR S1/S2 Abd - Soft, diffusely tender L>R, +BS Ext - No pedal edema Neuro - Alert and oriented. Nonfocal exam. Skin - multiple dry small eschars to the bilateral shins without change Ob
[2021-04-23] MEDS: METOPROLOL SUCCINATE EXT REL 50 MG TABCR PO (21:02)
[2021-04-23] MEDS: traZODone HCL 50 MG TABLET 100 MG PO (21:02)
[2021-04-23] MEDS: hydrOXYzine HCL 25 MG TABLET PO (21:03)
[2021-04-23] MEDS: MAG HYDROX/AL HYDROX/SIMETH 30 ML UDC PO (21:06)
[2021-04-23 22:00] VITALS: BP 147/70; PULSE 79; RESP 20; TEMP 36.6; O2SAT 92
[2021-04-24] MEDS: oxyCODONE/ACETAMINOPHEN (*CRX) 5-325 MG TABLET 1 TABLET PO ×4 (02:06→22:56)
[2021-04-24] MEDS: MORPHINE SULFATE (*CRX) 2 MG/ML INJ IV PUSH (02:57)
[2021-04-24] MEDS: LEVOTHYROXINE SODIUM 125 MCG TABLET PO (05:25)
[2021-04-24 06:00] VITALS: BP 140/82; PULSE 67; RESP 16; TEMP 36.1; O2SAT 96
[2021-04-24 06:54] LABS: Hematocrit 31.3 % (37.0-47.0); Mean Corpuscular HGB Conc 31.9 g/dl (32-36); Mean Corpuscular Hemoglobin 28.4 pg (26-34); Mean Corpuscular Volume 88.9 fl (80-100); Mean Platelet Volume 11.6 fl (7.4-10.4); Platelet Count Result 124 k/mm3 (150-375); Red Blood Count 3.52 M/mm3 (4.2-5.4); Red Cell Distribution Width 15.2 % (11.5-14.5); White Blood Count 4.4 K/mm3 (4.5-10.0)
[2021-04-24 07:06] LABS: Alanine Aminotransferase 63 U/L (4-35); Albumin Level 3.4 g/dL (3.5-5.1); Alkaline Phosphatase 206 U/L (38-126); Anion Gap 11 mmol/L (8-16); Aspartate Amino Transferase 64 U/L (14-36); Bilirubin,Total 0.8 mg/dL (0.2-1.3); Blood Urea Nitrogen 16 mg/dL (7-17); Calcium 8.8 mg/dL (8.4-10.2); Carbon Dioxide 26 mmol/L (22-30); Chloride 104 mmol/L (98-107); Estimated CRCL calculation 56 ml/min; Estimated Glomerular Filt Rate 36; Glucose 100 mg/dL (65-110); Magnesium 2.1 mg/dL (1.6-2.3); Potassium 4.4 mmol/L (3.4-5.0); Sodium 141 mmol/L (137-145)
[2021-04-24 08:17] LABS: Band Neutrophils Percent 7 % (0-6); Eosinophils Absolute Manual 0.13 K/mm3 (0.02-0.5); Eosinophils Percent Manual 3 % (0-4); Lymphocytes Absolute Manual 1.84 K/mm3 (1.1-4.5); Monocytes Absolute Manual 0.04 K/mm3 (0.1-0.90); Monocytes Percent Manual 1 % (3-9); Neutrophils Absolute Manual 2.37 K/mm3 (1.7-7.2); Neutrophils Percent Manual 47 % (46-73); Total Cells Counted 100
[2021-04-24 08:18] LABS: Atypical Lymphocytes Present; Hypochromasia 1+ (NORMAL); Platelet Estimate Adequate (Adequate)
[2021-04-24] MEDS: ATORVASTATIN 20 MG TABLET PO (08:50)
[2021-04-24] MEDS: DULoxetine HCL 30 MG CAPSULE.DR 60 MG PO ×2 (08:50→22:57)
[2021-04-24] MEDS: CHOLECALCIFEROL 1,000 UNITS TABLET 5000 UNITS PO ×2 (08:50→22:58)
[2021-04-24] MEDS: POTASSIUM CHLORIDE 20 MEQ TABLET.ER 40 MEQ PO (08:50)
[2021-04-24] MEDS: ASPIRIN 81 MG ENTERIC TABLET PO (08:51)
[2021-04-24] MEDS: NICOTINE (*PBKC) 21 MG PATCH 1 PATCH TRANSDERM (08:51)
[2021-04-24] MEDS: UMECLIDINIUM/VILANTEROL 62.5-25 MCG ELLIPTA 1 PUFF INHALATION (08:53)
[2021-04-24] MEDS: PREGABALIN (*CRX) 75 MG CAPSULE 150 MG PO ×2 (08:54→17:15)
[2021-04-24] MEDS: ENOXAPARIN 40 MG/0.4 ML SYRINGE SUB-Q (13:25)
[2021-04-24 14:00] VITALS: BP 148/89; PULSE 75; RESP 16; TEMP 36.1; O2SAT 95
--- NOTE | 2021-04-24 14:56 | PM.IMPN ---
Progress Note: A&P Assessment and Plan (1) Sepsis: Qualifiers: Acute renal failure type: unspecified Sepsis acute organ dysfunction status: with acute organ dysfunction Sepsis type: sepsis due to unspecified organism Severe sepsis acute organ dysfunction type: acute renal failure Severe sepsis shock status: without septic shock Qualified Code(s): A41.9 - Sepsis, unspecified organism; R65.20 - Severe sepsis without septic shock; N17.9 - Acute kidney failure, unspecified Code(s): A41.9 - Sepsis, unspecified organism Status: Acute Assessment and Plan: Patient has sepsis due to left-sided pyelonephritis. Sepsis criteria on admission include tachycardia, tachypnea, hyperbilirubinemia, transaminitis, MISAEL and leukocytosis. Rapid COVID swab negative. BCx growing EColi (2of2i) sensitive to Rocephin. UCx growing EColi sensitive Rocephin. Continue Rocephin at 2gm daily dose. Resolution of sepsis symptoms. Home tomorrow if remains afebrile. (2) Pyelonephritis: Code(s): N12 - Tubulo-interstitial nephritis, not specified as acute or chronic Status: Acute Assessment and Plan: Patient has sepsis due to left-sided pyelonephritis. UA noted. Urine cultures growing EColi. BCx (2of2) are also positive for EColi sensitive to Rocephin. Continue Rocephin at 2gm daily dose. Afebrile for over 24 hours now. WBC low but improved. Continue to follow. (3) Acute kidney injury superimposed on chronic kidney disease: Code(s): N17.9 - Acute kidney failure, unspecified; N18.9 - Chronic kidney disease, unspecified Status: Acute Assessment and Plan: Patient with MISAEL on chronic kidney disease due to dehydration and sepsis. Cr values were normal in 2018 but have been in the 1.4-1.6 range since November 2019. Cr here 2.4 on admission. Treated with IV fluids. Renal US normal. Renal function improving with Cr down to 1.5 and remaining stable. [place] that she is back to baseline so IV fluids stopped. Okay to resume Lasix at lower dose. Follow (4) Elevated transaminase level: Code(s): R74.01 - Elevation of levels of liver transaminase levels Status: Acute Assessment and Plan: AST/ALT/Tbili mildly elevated on admission. [place] related to the sepsis. TBili normal now. AST/ALT only mildly elevated and higher today. Hepatitis panel negative. Check RUQ US. Follow. (5) Thrombocytopenia: Code(s): D69.6 - Thrombocytopenia, unspecified Status: Acute Assessment and Plan: Plt count low on admission at 145K. Plt count dropped to 97K but now better at 124K. [place] related to the sepsis. Continue Lovenox for now. Will follow. (6) Sleep apnea with use of continuous positive airway pressure (CPAP): Code(s): G47.30 - Sleep apnea, unspecified Status: Acute Assessment and Plan: Auto titrating CPAP/BiPAP has been ordered. Patient reports she is compliant with her home CPAP. She is compliant here as well (7) Tobacco abuse: Code(s): Z72.0 - Tobacco use Status: Acute Assessment and Plan: Patient was educated about the benefits of smoking cessation. (8) DVT prophylaxis: Code(s): Z29.9 - Encounter for prophylactic measures, unspecified Status: Acute Assessment and Plan: Lovenox. History of DVT in the past and was treated with Eliquis for 6 months back in 2019. Subjective Date/time seen: 04/24/21 14:56 Interval history: 56yo female with CKD, HTN and [place] here for fever and found to have UTI with septicemia. Patient has developed cold sores on her lip that started last night. She had trouble sleeping and achy all over felt to be chronic related to her fibromyalgia. No CP or SOB. Walking to the bathroom. No fevers now. Slight nausea. Requesting discharge. Has leg edema and is requesting her Lasix. Exam Narrative: AF 96.9 148/89 75 16 95% ra Gen - NARD sitting up on the couch HEENT - cold sores noted right
--- NOTE | 2021-04-24 15:18 | PC.NURSE ---
On 04/24/21, the student, [facility] nursing home aide took vital signs, provided care and completed [employer] documentation on this patient. I have reviewed the student's documentation and agree with the findings.
[2021-04-24] MEDS: DOCOSANOL 10% CREAM 2 GM 1 APPLIC TOPICAL ×3 (17:10→22:57)
[2021-04-24] MEDS: FUROSEMIDE 20 MG TABLET PO (17:11)
[2021-04-24 22:00] VITALS: BP 166/85; PULSE 65; RESP 18; TEMP 36.8; O2SAT 96
[2021-04-24] MEDS: hydrOXYzine HCL 25 MG TABLET PO (22:56)
[2021-04-24] MEDS: traZODone HCL 50 MG TABLET 100 MG PO (22:57)
[2021-04-24] MEDS: METOPROLOL SUCCINATE EXT REL 50 MG TABCR PO (22:57)
[2021-04-24 23:00] VITALS: PULSE 81; RESP 15; O2SAT 93
[2021-04-25 02:12] VITALS: PULSE 73; RESP 14; O2SAT 94
[2021-04-25] MEDS: oxyCODONE/ACETAMINOPHEN (*CRX) 5-325 MG TABLET 1 TABLET PO (05:46)
[2021-04-25] MEDS: LEVOTHYROXINE SODIUM 125 MCG TABLET PO (05:46)
[2021-04-25 06:00] VITALS: BP 152/83; PULSE 64; RESP 18; TEMP 37.3; O2SAT 95
[2021-04-25 08:45] LABS: Alanine Aminotransferase 45 U/L (4-35); Albumin Level 3.2 g/dL (3.5-5.1); Alkaline Phosphatase 185 U/L (38-126); Anion Gap 8 mmol/L (8-16); Aspartate Amino Transferase 32 U/L (14-36); Bilirubin,Total 0.7 mg/dL (0.2-1.3); Blood Urea Nitrogen 14 mg/dL (7-17); Carbon Dioxide 27 mmol/L (22-30); Chloride 107 mmol/L (98-107); Estimated CRCL calculation 60 ml/min; Estimated Glomerular Filt Rate 39; Glucose 95 mg/dL (65-110); Potassium 4.2 mmol/L (3.4-5.0); Sodium 142 mmol/L (137-145)
[2021-04-25] MEDS: UMECLIDINIUM/VILANTEROL 62.5-25 MCG ELLIPTA 1 PUFF INHALATION (09:16)
--- NOTE | 2021-04-25 10:30 | PC.NURSE ---
Patient NPO for ultrasound so a.mApollo armendariz held
[2021-04-25] MEDS: ATORVASTATIN 20 MG TABLET PO (11:00)
[2021-04-25] MEDS: ASPIRIN 81 MG ENTERIC TABLET PO (11:00)
[2021-04-25] MEDS: CHOLECALCIFEROL 1,000 UNITS TABLET 5000 UNITS PO (11:00)
[2021-04-25] MEDS: FUROSEMIDE 20 MG TABLET PO (11:01)
[2021-04-25] MEDS: ENOXAPARIN 40 MG/0.4 ML SYRINGE SUB-Q (11:01)
[2021-04-25] MEDS: DULoxetine HCL 30 MG CAPSULE.DR 60 MG PO (11:01)
[2021-04-25] MEDS: POTASSIUM CHLORIDE 20 MEQ TABLET.ER 40 MEQ PO (11:01)
[2021-04-25] MEDS: NICOTINE (*PBKC) 21 MG PATCH 1 PATCH TRANSDERM (11:01)
[2021-04-25] MEDS: DOCOSANOL 10% CREAM 2 GM 1 APPLIC TOPICAL (11:02)
[2021-04-25] MEDS: PREGABALIN (*CRX) 75 MG CAPSULE 150 MG PO (11:11)
--- NOTE | 2021-04-25 11:54 | PM.DS ---
DS: Admitting Diagnosis Discharge Date 04/25/21 Admitting Diagnosis Fatigue DS: Discharge Diagnosis Discharge Diagnosis (1) Sepsis: Qualifiers: Sepsis type: sepsis due to unspecified organism Sepsis acute organ dysfunction status: with acute organ dysfunction Severe sepsis acute organ dysfunction type: acute renal failure Acute renal failure type: unspecified Severe sepsis shock status: without septic shock Qualified Code(s): A41.9 - Sepsis, unspecified organism; R65.20 - Severe sepsis without septic shock; N17.9 - Acute kidney failure, unspecified Code(s): A41.9 - Sepsis, unspecified organism Status: Acute Assessment and Plan: Patient has sepsis due to left-sided pyelonephritis. Sepsis criteria on admission include tachycardia, tachypnea, hyperbilirubinemia, transaminitis, MISAEL and leukocytosis. Rapid COVID swab negative. BCx growing EColi (2of2) sensitive to Rocephin. UCx growing EColi sensitive Rocephin. Treated with Rocephin at 2gm daily dose. She had resolution of sepsis symptoms. (2) Pyelonephritis: Code(s): N12 - Tubulo-interstitial nephritis, not specified as acute or chronic Status: Acute Assessment and Plan: Patient has sepsis due to left-sided pyelonephritis. UA noted. Urine cultures growing EColi. BCx (2of2) are also positive for EColi sensitive to Rocephin. She was treated with Rocephin (3) Acute kidney injury superimposed on chronic kidney disease: Code(s): N17.9 - Acute kidney failure, unspecified; N18.9 - Chronic kidney disease, unspecified Status: Acute Assessment and Plan: Patient with MISAEL on chronic kidney disease due to dehydration and sepsis. Cr values were normal in 2018 but have been in the 1.4-1.6 range since November 2019. Cr here 2.4 on admission. Treated with IV fluids. Renal US normal. Renal function improving with Cr down to 1.4 and remaining stable. She is back to her baseline renal function. (4) Elevated transaminase level: Code(s): R74.01 - Elevation of levels of liver transaminase levels Status: Acute Assessment and Plan: AST/ALT/Tbili mildly elevated on admission. [place] related to the sepsis. TBili normal now. AST/ALT only mildly elevated and trending down. Hepatitis panel negative. RUQ US was normal (5) Thrombocytopenia: Code(s): D69.6 - Thrombocytopenia, unspecified Status: Acute Assessment and Plan: Plt count low on admission at 145K. Plt count dropped to 97K before improving. [place] related to the sepsis. (6) Sleep apnea with use of continuous positive airway pressure (CPAP): Code(s): G47.30 - Sleep apnea, unspecified Status: Acute Assessment and Plan: Auto titrating CPAP/BiPAP has been ordered. Patient reports she is compliant with this at home. She was compliant here as well (7) Tobacco abuse: Code(s): Z72.0 - Tobacco use Status: Acute Assessment and Plan: Patient was educated about the benefits of smoking cessation. DS: Summary Hospital Course Reason for hospitalization: 56yo female with CKD, HTN and [place] here for fever and found to have UTI with septicemia. Please see H&P for details Hospital Course: Please see above for details of hospital course Status at Discharge Cognitive/behavioral status at discharge: stable Time Spent with Patient Time attestation: Total time spent providing and/or coordinating discharge services: 34 minutes Time spent: Greater than 30 minutes Exam Narrative: AF 99.2 152/83 64 18 95% ra Gen - NARD HEENT - cold sores noted right side of the lip that are dry now Chest - CTA bilaterally, nml RR CV - RRR S1/S2 Abd - Soft, NT/ND, +BS Ext - no pedal edema Neuro - Alert and oriented. Nonfocal exam. Skin - multiple dry small eschars to the bilateral shins without change DS: Data Data Completed and Pending Labs on day of discharge: Labs from last 24 hours 04/25/21
[2021-04-29 12:54] LABS: Complement Total CH50 30 U/mL (31-60)
== END 2021-04-25 13:45 | disposition home or self-care (01) | DRG 872 ==
LOC: ANHED 19:50 → ANH3MEDSUR 04-22 09:34
PROVIDERS: Emergency Medicine; Admitting Provider Internal Medicine; Emergency Provider Emergency Medicine; PCP Family Medicine; Visit Provider Internal Medicine
DX: A41.51 Sepsis due to Escherichia coli [E. coli] (principal); N10 Acute pyelonephritis; N17.9 Acute kidney failure, unspecified; N18.4 Chronic kidney disease, stage 4 (severe); Z68.42 Body mass index [BMI] 45.0-49.9, adult; R65.20 Severe sepsis without septic shock; I12.9 Hypertensive chronic kidney disease with stage 1 through stage 4 chronic kidney disease, or unspecified chronic kidney disease; Z20.822 Contact with and (suspected) exposure to COVID-19; E86.0 Dehydration; D69.59 Other secondary thrombocytopenia; G47.33 Obstructive sleep apnea (adult) (pediatric); M79.7 Fibromyalgia; J44.9 Chronic obstructive pulmonary disease, unspecified; F41.9 Anxiety disorder, unspecified; M19.90 Unspecified osteoarthritis, unspecified site; L30.9 Dermatitis, unspecified; E78.5 Hyperlipidemia, unspecified; E03.9 Hypothyroidism, unspecified; G62.9 Polyneuropathy, unspecified; F17.210 Nicotine dependence, cigarettes, uncomplicated; E66.01 Morbid (severe) obesity due to excess calories
CPT/HCPCS: 36415; 71045; 76705; 76775; 80048; 80053; 80074; 80307; 81001; 82550; 82570; 82728; 83605; 83615; 83735; 84300; 85025; 85610; 85730; 85999; 86038; 86140; 86160; 86162; 87040; 87077; 87086; 87088; 87186; 87426; 93005; 94640; 94660; 96361; 96365; 99285; A9270; C9803; J0696; J1650; J2270; J3475; J7120

== ENCOUNTER 2021-05-07 08:02 | Outpatient (CLI) | payer OTHER, SELFPAY ==
--- NOTE | 2021-05-07 | EST_ITS ---
Patient Info Name: Jagruti Thao Age: 56 years : 1965 Gender: Female Ht: 67 in Wt: 296 lbs BSA: 2.59 m2 HR: 71 bpm BP: 100 / 64 mmHg Heart Rhythm: Sinus Rhythm Technical Quality: Excellent Exam Date: 05/07/2021 9:14 AM Exam Location: [facility] Stress Patient Status: Outpatient Admit Date: 05/07/2021 Staff Ordering Physician: Roque, Silva Ortega MD Attending Provider: Roque, Silva Ortega MD Exercise Technologist: Diamond Damon CT Exercise Physician: Natasha Hastings MD Exam Type: CA stress ina w NM Study Info Indications R07.89 - Other chest pain A pharmacological stress test was performed. Summary 1. No abnormal ST-T wave changes with lexiscan. 2. Nuclear test results to follow. Protocol: Lexiscan Stress ECG Details Stage: REST Duration (min): 2 min : 45 sec HR (bpm): 68 SBP (mmHg): 100 DBP (mmHg): 64 Stage: REST Duration (min): 11 min : 56 sec HR (bpm): 73 SBP (mmHg): 100 DBP (mmHg): 64 Stage: STAGE 1 Duration (min): 0 min : 59 sec HR (bpm): 80 SBP (mmHg): 104 DBP (mmHg): 83 Stage: RECOVERY Duration (min): 1 min : 0 sec HR (bpm): 92 SBP (mmHg): 104 DBP (mmHg): 83 Stage: RECOVERY Duration (min): 2 min : 0 sec HR (bpm): 25 SBP (mmHg): 104 DBP (mmHg): 83 Stage: RECOVERY Duration (min): 3 min : 0 sec HR (bpm): 87 SBP (mmHg): 118 DBP (mmHg): 78 Stage: RECOVERY Duration (min): 3 min : 12 sec HR (bpm): 89 SBP (mmHg): 118 DBP (mmHg): 78 Rest HR: 73 bpm Peak HR: 93 bpm Rest Sys BP: 100 mmHg Peak Sys BP: 118 mmHg Max Pred HR: 166 bpm % Max Pred HR: 56 % Target HR: 141 bpm Max RPP: 10,974 bpm*mmHg BP Response: Normal blood pressure response Termination Reason: Completed protocol Cardiac Symptoms: None Total Time: 1 min : 0 sec Rest [place] BP: 64 mmHg Peak [place] BP: 78 mmHg Total Dose: 0.4 mg Resting ECG Normal sinus rhythm - normal ECG. Stress ECG No abnormal ST/T wave changes with exercise. Arrhythmias None. Report Signatures
--- NOTE | ~2021-05-07 | NM_ITS ---
EXAMINATION: NM ina stress w perfusion DATE: 05/07/2021 11:59 INDICATION: Chest pain TECHNIQUE: Rest images were obtained following intravenous administration of 10.8 mCi Tc99m tetrofosm in (Myoview). The patient was infused intravenously with Lexiscan (Regadenoson). Then, 32.7 mCi Tc99m tetrofosmin (Myoview) was administered intravenously, and stress images were obtained in supine posi tion. Additional prone post stress imaging was obtained. Data was reconstructed into short axis and h orizontal and vertical long axis SPECT images. Gated SPECT images were also obtained. COMPARISON: None. FINDINGS: There is no definite reversible or fixed perfusion abnormality to suggest ischemia or infar ction. There is normal left ventricular chamber size, wall motion and ejection fraction. Left ventr icular ejection fraction measures >70%. IMPRESSION: 1. Normal myocardial perfusion at rest and during stress. 2. Left ventricular ejection fraction measuring >70%. Reviewed, dictated and finalized at location A.
== END 2021-05-07 08:03 | disposition home or self-care (01) ==
LOC: ANHCARD 08:05
PROVIDERS: PCP Family Medicine; Visit Provider Family Medicine
DX: R07.89 Other chest pain (principal)
CPT/HCPCS: 78452; 93017; A9502

== ENCOUNTER 2021-11-28 19:31 | Emergency (ER) | payer OTHER, SELFPAY ==
--- NOTE | ~2021-11-28 | CT_ITS ---
EXAMINATION: CT chest abdomen pelvis w con DATE: 11/28/2021 21:00 INDICATION: Fever, cough, abdominal pain TECHNIQUE: Transaxial computed tomographic images of the chest, abdomen, and pelvis were obtained aft er the administration of 100 cc of Omnipaque 350 intravenous contrast. The dose-length product (DLP) was 1867.63 mGy-cm. Automated exposure control and iterative reconstruction technique were employed. COMPARISON: 11/20/2019 FINDINGS: CHEST CT: The lungs are free of focal airspace opacities. There is mild dependent atelectasis. No pleural effus ion or pneumothorax is identified. Cardiomegaly is noted. There are no pathologically enlarged thorac ic lymph nodes. ABDOMEN/PELVIS CT: The liver, spleen, pancreas, gallbladder, and left adrenal gland are normal. There is a chronic 3.5 c m mass of the right adrenal gland which previously measured low-attenuation, consistent with an adeno ma. There is there is patchy perfusion of the kidneys with moderate right and mild left perinephric s tranding. No pathologically enlarged abdominal or pelvic lymph nodes are identified. There is no free intraperitoneal gas or evidence of bowel obstruction. Colonic diverticulosis is present without evid ence of diverticulitis. The appendix is normal. IMPRESSION: 1. Patchy perfusion of the kidneys with perinephric fat stranding possibly reflecting pyelonephritis. Correlation with urinalysis is recommended. 2. Cardiomegaly. Reviewed, dictated and finalized at location F. IMPRESSION: 1. Patchy perfusion of the kidneys with perinephric fat stranding possibly refl ecting pyelonephritis. Correlation with urinalysis is recommended. 2. Cardiomegaly.
--- NOTE | ~2021-11-28 | XR_ITS ---
EXAMINATION: XR chest 2V DATE: 11/28/2021 19:51 INDICATION: Cough and nausea TECHNIQUE: PA and lateral views of the chest are obtained. COMPARISON: 04/20/2021 FINDINGS: The lungs are free of acute opacities. There is no pleural effusion or pneumothorax. The ca rdiomediastinal silhouette is normal. There is mild thoracic spondylosis. IMPRESSION: 1. No acute cardiopulmonary abnormality. Reviewed, dictated and finalized at location F.
[2021-11-28 19:35] VITALS: BP 152/71; PULSE 97; RESP 14; TEMP 38.9; O2SAT 97
[2021-11-28] MEDS: ACETAMINOPHEN 500 MG TABLET 1000 MG PO (20:01)
--- NOTE | 2021-11-28 20:06 | ED.FEVER ---
HPI - Fever General Chief Complaint: Fever Stated Complaint: fever since Wednesday Time Seen by Provider: 11/28/21 19:36 History of Present Illness HPI Narrative: 56-year-old female presents to the emergency room for evaluation of a fever. Patient reports right upper abdominal pain and frequent diarrhea stools. Patient states she has had a fever for 3 days and has been taking Tylenol periodically. Patient denies shortness of breath, denies dysuria, denies chest pain. Patient also states that she has had a nonproductive cough. Related Data Home Medications Medication Instructions Recorded Confirmed Narcan 4 mg INTRANASAL PRN PRN 11/13/19 04/20/21 alprazolam 0.5 mg PO TID PRN 11/13/19 04/20/21 atorvastatin 20 mg PO DAILY 11/13/19 04/20/21 cyclobenzaprine 10 mg PO TID PRN 11/13/19 04/20/21 diclofenac sodium 75 mg PO BID 11/13/19 04/20/21 duloxetine 60 mg PO BID 11/13/19 04/20/21 furosemide 40 mg PO DAILY 11/13/19 04/20/21 metoprolol succinate 50 mg PO HS 11/13/19 04/20/21 oxycodone-acetaminophen 1 tablet PO Q8H PRN 11/13/19 04/20/21 potassium chloride 40 meq PO DAILY 11/13/19 04/20/21 pregabalin [Lyrica] 150 mg PO BID 11/13/19 04/20/21 Anoro Ellipta 1 inh INHALATION DAILY 04/06/21 04/20/21 albuterol sulfate 2 puff INHALATION Q6H PRN 04/06/21 04/20/21 aspirin 81 mg PO DAILY 04/06/21 04/20/21 cholecalciferol (vitamin D3) 250 mcg PO BID 04/06/21 04/20/21 [Dialyvite Vitamin D] hydrochlorothiazide 25 mg PO DAILY 04/06/21 04/20/21 hydroxyzine HCl 25 mg PO HS 04/06/21 04/20/21 levothyroxine [Euthyrox] 125 mcg PO DAILY 04/06/21 04/20/21 losartan 50 mg PO HS 04/06/21 04/20/21 trazodone 100 mg PO HS 04/06/21 04/20/21 biotin 1 tablet PO DAILY 04/20/21 04/20/21 Allergies Allergy/AdvReac Type Severity Reaction Status Date / Time ciprofloxacin Allergy Unknown Hives / Verified 11/28/21 20:47 Red Face Penicillins Allergy Unknown Unknown Verified 11/28/21 20:47 lisinopril AdvReac Intermediate COUGH Verified 11/28/21 20:47 Review of Systems Review of Systems: CONSTITUTIONAL: Reports fever, chills, body aches EYES: Denies visual changes, redness, or discharge. ENT: Denies rhinorrhea, congestion, sore throat, or otalgia. CARDIOVASCULAR: Denies chest pain, palpitations, or edema. RESPIRATORY: Reports nonproductive cough GASTROINTESTINAL: Reports upper abdominal pain, nausea, diarrhea GENITOURINARY: Denies dysuria or hematuria. SKIN: Denies rash or itching. MUSCULOSKELETAL: Denies back pain, joint pain, or myalgia. NEUROLOGIC: Denies headache, numbness, dizziness, or weakness. PSYCHIATRIC: Denies anxiety or depression. [facility] Past Medical History Medical History Anxiety Arthritis Back pain Chronic kidney disease, stage 3 COPD (chronic obstructive pulmonary disease) PFTs and 6 minute walk scheduled April 24, 2021 Depression Diverticulosis DVT (deep venous thrombosis) Eczema Fibromyalgia HLD (hyperlipidemia) HTN (hypertension) Hypothyroidism Peripheral neuropathy Psoriasis Sepsis Sleep apnea with use of continuous positive airway pressure (CPAP) UTI (urinary tract infection) Surgical History Surgical History History of colonoscopy with polypectomy (~2018) History of meniscectomy of left knee Hx of section Status post open reduction with internal fixation of fracture Left ankle fracture Family History Family History Father Hypertension Alcoholic cirrhosis, Onset Age: 70 Grandparent Hypertension Emphysema lung Mother Patient's mother is in good health Social History Social History Social History: She lives in [place] with her of 3 years. She has 2 adult daughters age 22 and 28 were in good health. She used to work as a data technical lead at a [employer]
[2021-11-28 20:14] LABS: Lactic Acid Reflex 1.8 mmol/L (0.7-2.1)
[2021-11-28 20:26] LABS: Alanine Aminotransferase 34 U/L (4-35); Albumin Level 4.4 g/dL (3.5-5.1); Alkaline Phosphatase 140 U/L (38-126); Anion Gap 11 mmol/L (8-16); Aspartate Amino Transferase 38 U/L (14-36); Bilirubin,Total 1.7 mg/dL (0.2-1.3); Blood Urea Nitrogen 17 mg/dL (7-17); Calcium 8.8 mg/dL (8.4-10.2); Carbon Dioxide 26 mmol/L (22-30); Chloride 101 mmol/L (98-107); Estimated Glomerular Filt Rate 43; Glucose 170 mg/dL (65-110); Potassium 2.7 mmol/L (3.4-5.0); Sodium 138 mmol/L (137-145)
[2021-11-28] MEDS: SODIUM CHLORIDE 0.9% IV 1,000 ML 999 ML IV CONT (20:44)
[2021-11-28 20:45] VITALS: RESP 18; TEMP 39.1; O2SAT 96
[2021-11-28] MEDS: POTASSIUM CHLORIDE 20 MEQ PACKET (FOR LIQUID) 60 MEQ PO (20:45)
[2021-11-28 20:47] LABS: Influenza A QL RT-PCR Negative (Negative); Influenza B QL RT-PCR Negative (Negative); SARS-CoV-2 RNA PCR Negative
[2021-11-28 20:52] LABS: Basophils Percent Auto 0.1 % (0.2-1.2); Eosinophils Absolute Auto 0.1 K/mm3 (0-0.3); Eosinophils Percent Auto 0.6 % (0-4.4); Hematocrit 39.2 % (37.0-47.0); Hemoglobin 12.8 g/dL (12.0-15.0); Immature Granulocyte Absolute 0.05 K/mm3 (0.00-0.031); Immature Granulocyte Percent A 0.4 % (0-0.5); Lymphocytes Absolute Auto 1.55 K/mm3 (0.9-3.2); Lymphocytes Percent Auto 11.9 % (18.3-44.2); Mean Corpuscular HGB Conc 32.7 g/dl (32-36); Mean Corpuscular Hemoglobin 28.1 pg (26-34); Mean Corpuscular Volume 86.2 fl (80-100); Mean Platelet Volume 11.5 fl (7.4-10.4); Monocytes Absolute Auto 1.1 K/mm3 (0.1-0.6); Monocytes Percent Auto 8.6 % (2.6-8.5); Neutrophils Absolute Auto 10.2 K/mm3 (1.3-6.7); Neutrophils Percent Auto 78.4 % (45.5-73.1); Platelet Count Result 180 k/mm3 (150-375); Red Blood Count 4.55 M/mm3 (4.2-5.4); Red Cell Distribution Width 16.3 % (11.5-14.5)
[2021-11-28 21:00] VITALS: BP 131/68; PULSE 78; RESP 20; O2SAT 98
[2021-11-28 21:48] VITALS: BP 148/73; PULSE 79; RESP 16; TEMP 37.8; O2SAT 94
[2021-11-28 22:00] LABS: Add Urine Microscopic? YES; Appearance Urine Cloudy (Clear); Bilirubin Urine Negative (Negative); Blood Urine 3+ (Negative); Color Urine Yellow (Yellow); Glucose Urine UA Negative (Negative); Ketones Urine Negative (Negative); Leukocyte Esterase Ur 1+ LEU/UL (Negative); Mucus Urine Rare /lpf; Nitrate Urine Negative (Negative); Protein Urine 1+ mg/dL (Negative); RBC Urine 21-50 /hpf (0-2); Specific Grav Ur 1.026 (1.001-1.035); Squamous Epithelial Cell Urine Many /hpf (Few); Urobilinogen Urine Negative mg/dL (<2.0); WBC Urine 31-50 /hpf
[2021-11-28 22:38] VITALS: BP 133/85; PULSE 73; RESP 18; O2SAT 96
== END 2021-11-28 22:39 | disposition home or self-care (01) ==
LOC: ANHED 19:57
PROVIDERS: Emergency Provider Nurse Practitioner Family; PCP Family Medicine
DX: N12 Tubulo-interstitial nephritis, not specified as acute or chronic (principal); E87.6 Hypokalemia; Z20.822 Contact with and (suspected) exposure to COVID-19; I12.9 Hypertensive chronic kidney disease with stage 1 through stage 4 chronic kidney disease, or unspecified chronic kidney disease; N18.30 Chronic kidney disease, stage 3 unspecified; J44.9 Chronic obstructive pulmonary disease, unspecified; E78.5 Hyperlipidemia, unspecified; E03.9 Hypothyroidism, unspecified; G62.9 Polyneuropathy, unspecified; G47.30 Sleep apnea, unspecified; F32.A Depression, unspecified; F41.9 Anxiety disorder, unspecified; Z86.718 Personal history of other venous thrombosis and embolism; Z87.440 Personal history of urinary (tract) infections; F17.210 Nicotine dependence, cigarettes, uncomplicated; I51.7 Cardiomegaly
CPT/HCPCS: 36415; 71046; 71260; 74177; 80053; 81001; 83605; 85025; 87040; 87077; 87086; 87088; 87186; 87502; 96365; 99284; A9270; C9803; J0696; J7030; Q9967; U0003; U0005

== ENCOUNTER 2021-12-05 15:06 | Observation (INO) | payer OTHER, SELFPAY ==
[2021-12-05 15:17] VITALS: BP 139/74; PULSE 73; RESP 18; TEMP 36.8; O2SAT 98
--- NOTE | 2021-12-05 15:55 | ED.BACK ---
HPI - Back Pain/Injury General Chief Complaint: Abdominal Pain Stated Complaint: pain in back from kidneys Time Seen by Provider: 12/05/21 15:48 Source: patient Mode of arrival: ambulatory Limitations: no limitations History of Present Illness HPI Narrative: Patient is a 56-year-old female complaining of bilateral lower back pain, flank pain, 8 out of 10, sharp, nonradiating that started 1 week ago. Patient was seen here 1 week ago for the above complaint, had labs and a CT scan of her chest, abdomen and pelvis done, was diagnosed with pyelonephritis, given IV antibiotics and discharged on oral antibiotic. Patient states that she is been taking her Percocet and is not providing any relief with her back pain. Patient has a history of chronic back pain. Patient denies any chest pain, shortness of breath, nausea, vomiting, dysuria, fever or chills. Related Data Home Medications Medication Instructions Recorded Confirmed Narcan 4 mg INTRANASAL PRN PRN 11/13/19 04/20/21 alprazolam 0.5 mg PO TID PRN 11/13/19 04/20/21 atorvastatin 20 mg PO DAILY 11/13/19 04/20/21 cyclobenzaprine 10 mg PO TID PRN 11/13/19 04/20/21 diclofenac sodium 75 mg PO BID 11/13/19 04/20/21 duloxetine 60 mg PO BID 11/13/19 04/20/21 furosemide 40 mg PO DAILY 11/13/19 04/20/21 metoprolol succinate 50 mg PO HS 11/13/19 04/20/21 oxycodone-acetaminophen 1 tablet PO Q8H PRN 11/13/19 04/20/21 potassium chloride 40 meq PO DAILY 11/13/19 04/20/21 pregabalin [Lyrica] 150 mg PO BID 11/13/19 04/20/21 Anoro Ellipta 1 inh INHALATION DAILY 04/06/21 04/20/21 albuterol sulfate 2 puff INHALATION Q6H PRN 04/06/21 04/20/21 aspirin 81 mg PO DAILY 04/06/21 04/20/21 cholecalciferol (vitamin D3) 250 mcg PO BID 04/06/21 04/20/21 [Dialyvite Vitamin D] hydrochlorothiazide 25 mg PO DAILY 04/06/21 04/20/21 hydroxyzine HCl 25 mg PO HS 04/06/21 04/20/21 levothyroxine [Euthyrox] 125 mcg PO DAILY 04/06/21 04/20/21 losartan 50 mg PO 04/06/21 04/20/21 trazodone 100 mg PO 04/06/21 04/20/21 biotin 1 tablet PO DAILY 04/20/21 04/20/21 Allergies Allergy/AdvReac Type Severity Reaction Status Date / Time ciprofloxacin Allergy Unknown Hives / Verified 11/28/21 20:47 Red Face Penicillins Allergy Unknown Unknown Verified 11/28/21 20:47 lisinopril AdvReac Intermediate COUGH Verified 11/28/21 20:47 Review of Systems Review of Systems: All systems reviewed & are unremarkable except as noted in HPI and below Constitutional: Constitutional: Denies body ache(s), Denies chills, Denies excessive sweating, Denies fatigue, Denies fever(s), Denies headache(s), Denies lethargy, Denies malaise, Denies weakness and Denies weight loss Eyes: Eyes: Denies blurry vision, Denies change in vision and Denies loss of vision ENT: Denies dizziness, Denies ear discharge, Denies headache(s), Denies lip swelling, Denies epistaxis, Denies nasal congestion, Denies neck pain, Denies throat swelling and Denies tongue swelling Cardiovascular: Cardiovascular: Denies chest pain, Denies chest pain at rest, Denies chest pain with activity, Denies diaphoresis, Denies rapid heart rate, Denies edema, Denies irregular heart rhythm, Denies lightheadedness, Denies palpitations, Denies dyspnea and Denies dyspnea on exertion Respiratory: Respiratory: Denies chest congestion, Denies cough, Denies hemoptysis, Denies dyspnea and Denies dyspnea on exertion Gastrointestinal: Gastrointestinal: Denies abdominal pain, Denies melena, Denies hematochezia, Denies diarrhea, Denies nausea, Denies vomiting and Denies hematemesis Musculoskeletal: Musculoskeletal: Denies abnormal gait, Denies deformity, Denies joint swelling, Denies limited range of motion, Denies neck pain and Denies numbness Neurologic: Denies Abnormal speech present, Denies abnormal gait, Denies confusion, Denies dizziness, Denies headache(s), Denies focal weakness, Denies loss of vision, Denies numbness, Denies Other visual disturbances, Denies Sensory deficit (Neuro) and Denies weakn
[2021-12-05] MEDS: SODIUM CHLORIDE 0.9% IV 1,000 ML 999 ML IV CONT (16:16)
[2021-12-05 16:21] LABS: Basophils Percent Auto 0.4 % (0.2-1.2); Eosinophils Absolute Auto 0.3 K/mm3 (0-0.3); Eosinophils Percent Auto 3.3 % (0-4.4); Hematocrit 35.7 % (37.0-47.0); Hemoglobin 11.8 g/dL (12.0-15.0); Immature Granulocyte Absolute 0.45 K/mm3 (0.00-0.031); Immature Granulocyte Percent A 4.4 % (0-0.5); Lymphocytes Absolute Auto 2.81 K/mm3 (0.9-3.2); Lymphocytes Percent Auto 27.6 % (18.3-44.2); Mean Corpuscular HGB Conc 33.1 g/dl (32-36); Mean Corpuscular Hemoglobin 28.8 pg (26-34); Mean Corpuscular Volume 87.1 fl (80-100); Mean Platelet Volume 10.6 fl (7.4-10.4); Monocytes Absolute Auto 0.5 K/mm3 (0.1-0.6); Neutrophils Percent Auto 59.3 % (45.5-73.1); Platelet Count Result 341 k/mm3 (150-375); Red Cell Distribution Width 16.5 % (11.5-14.5); White Blood Count 10.2 K/mm3 (4.5-10.0)
[2021-12-05 16:32] LABS: Add Urine Microscopic? YES; Appearance Urine Cloudy (Clear); Bilirubin Urine Negative (Negative); Blood Urine Negative (Negative); Color Urine Yellow (Yellow); Glucose Urine UA Negative (Negative); Ketones Urine Negative (Negative); Leukocyte Esterase Ur Negative LEU/UL (Negative); Mucus Urine Rare /lpf; Nitrate Urine Negative (Negative); Protein Urine Negative (Negative); Specific Grav Ur 1.016 (1.001-1.035); Squamous Epithelial Cell Urine Moderate /hpf (Few); Urobilinogen Urine Negative mg/dL (<2.0)
[2021-12-05 16:36] LABS: Alanine Aminotransferase 44 U/L (4-35); Albumin Level 4.1 g/dL (3.5-5.1); Alkaline Phosphatase 140 U/L (38-126); Anion Gap 6 mmol/L (8-16); Aspartate Amino Transferase 32 U/L (14-36); Bilirubin,Total 0.3 mg/dL (0.2-1.3); Blood Urea Nitrogen 26 mg/dL (7-17); Calcium 9.5 mg/dL (8.4-10.2); Carbon Dioxide 28 mmol/L (22-30); Chloride 106 mmol/L (98-107); Estimated CRCL calculation 46 ml/min; Estimated Glomerular Filt Rate 29; Glucose 96 mg/dL (65-110); Potassium 3.8 mmol/L (3.4-5.0); Sodium 140 mmol/L (137-145)
[2021-12-05 17:00] VITALS: BP 132/74; PULSE 74; RESP 16; TEMP 36.8; O2SAT 98
[2021-12-05 18:00] VITALS: BP 132/74; PULSE 74; RESP 16; TEMP 36.3
[2021-12-05] MEDS: LACTATED RINGERS 1,000 ML 90 ML IV CONT (18:01)
--- NOTE | 2021-12-05 18:56 | ADMGEN ---
This patient, Jagruti Thao, was admitted to Medical Room 340-01. Patient/family oriented to hospital policies and general routines including ID bracelet, bed and alarms, visiting hours, pain management, procedures, bathroom and other care routines, personal items, smoking policy, room service/diet, and visiting hours. Information on how to activate the Rapid Response Team has been discussed. Patient/Family are encouraged to report perceived risks to care and to ask questions if they do not understand what they are told or what they should do.
[2021-12-05 19:01] VITALS: BMI 45.9
[2021-12-05 19:23] VITALS: BP 150/86; PULSE 64; RESP 18; TEMP 36.6; O2SAT 98
--- NOTE | 2021-12-05 20:15 | PM.IMHP ---
H&P: HPI History of Present Illness Date/Time: 12/05/21 20:15 Chief Complaint: Back pain Narrative: This is a 56-year-old female with past medical history significant for fibromyalgia, obesity, hypertension, chronic kidney disease, COPD, peripheral neuropathy, obstructive sleep apnea on CPAP at nighttime. Patient comes today to the emergency room due to back pain patient is at reviewed in these to her urinary tract infection on she had a visit to the emergency room a week ago and she was sent home on antibiotics for urinary tract infection patient has completed 7 days of Bactrim and repeat urinalysis today shows only 4-6 wbc's from prior much improved and a urine culture or so shows E coli 10,000-49,000 CFU. Patient denies any fevers, rigors, chills, nausea, vomiting, diarrhea pain is in her lower back nonradiating 7/10 in intensity. Patient has been admitted for further evaluation management and treatment. Review of Systems Review of Systems: Back pain. Constitutional: Constitutional: Denies chills, Denies fatigue, Denies fever(s), Denies lethargy, Denies malaise, Denies night sweats, Denies poor appetite and Denies weakness Eyes: Eyes: Denies change in vision ENT: Denies dysphagia, Denies vertigo, Denies nasal congestion, Denies nasal discharge, Denies nasal obstruction and Denies odynophagia Cardiovascular: Cardiovascular: Denies chest pain, Denies pedal edema, Denies claudication, Denies leg edema, Denies radiating jaw, neck or arm pain, Denies palpitations, Denies dyspnea on exertion and Denies orthopnea Respiratory: Respiratory: Denies change in phlegm color, Denies cough and Denies excessive phlegm production Gastrointestinal: Gastrointestinal: Denies abdominal pain, Denies dyspepsia, Denies heartburn, Denies diarrhea, Denies nausea and Denies vomiting Genitourinary: Genitourinary: Denies dysuria and Denies flank pain Musculoskeletal: Musculoskeletal: Reports back pain Integumentary/Breasts: Skin/Breast: Denies rash Neurologic: Denies vertigo, Denies dizziness, Denies focal weakness and Denies Sensory deficit (Neuro) Psychiatric: Psychiatric: Reports no additional psychiatric complaints and Reports as per HPI Endocrine: Endocrine: Denies cold intolerance, Denies flushing, Denies heat intolerance, Denies polyphagia, Denies polydipsia and Denies palpitations Hematologic/Lymphatic: Hematologic/Lymphatic: Reports no additional hematologic/lymphatic complaints and Reports as per HPI Allergic/Immunologic: Allergic/Immunologic: Reports no additional allergic/immunologic complaints and Reports as per HPI COUNTS INCLUDE 234 BEDS AT THE [facility] Past Medical History Medical History (Updated 12/06/21 @ 05:20 by Tianna Phillips MD) Anxiety Arthritis Back pain Chronic kidney disease, stage 3 COPD (chronic obstructive pulmonary disease) PFTs and 6 minute walk scheduled April 24, 2021 Depression Diverticulosis DVT (deep venous thrombosis) Eczema Fibromyalgia HLD (hyperlipidemia) HTN (hypertension) Hypothyroidism Peripheral neuropathy Psoriasis Sepsis Sleep apnea with use of continuous positive airway pressure (CPAP) UTI (urinary tract infection) Surgical History Surgical History History of colonoscopy with polypectomy (~2018) History of meniscectomy of left knee Hx of section Status post open reduction with internal fixation of fracture Left ankle fracture Family History Family History (Updated 12/05/21 @ 20:21 by Lily Shanks RN) Father Alcoholic cirrhosis, Onset Age: 70 Hypertension Grandparent Emphysema lung Hypertension Mother Patient's mother is in good health Sibling Emphysema lung Diabetes mellitus Social History Social History Social History: She lives in [place] with her of 3 years. She has 2 adult daughters age 22 and 28 were in good health. She used to work as a technical assista
[2021-12-05] MEDS: oxyCODONE/ACETAMINOPHEN (*CRX) 5-325 MG TABLET 1 TABLET PO (20:55)
--- NOTE | 2021-12-05 21:57 | PC.NURSE ---
home cpap verified by maintenance at this time.
[2021-12-05 23:35] VITALS: PULSE 71; O2SAT 97
[2021-12-05 23:36] VITALS: O2SAT 97
[2021-12-06 04:11] VITALS: PULSE 74; O2SAT 96
[2021-12-06 04:59] VITALS: BP 141/81; PULSE 79; RESP 18; TEMP 36.6; O2SAT 96
[2021-12-06] MEDS: oxyCODONE/ACETAMINOPHEN (*CRX) 5-325 MG TABLET 1 TABLET PO (06:13)
[2021-12-06] MEDS: LACTATED RINGERS 1,000 ML 90 ML IV CONT (06:14)
[2021-12-06] MEDS: DICLOFENAC SOD 75 MG TABLET.EC PO ×2 (08:12→18:05)
[2021-12-06] MEDS: FUROSEMIDE 40 MG TABLET PO (08:15)
[2021-12-06] MEDS: hydroCHLOROthiazide 25 MG TABLET PO (08:15)
[2021-12-06] MEDS: NICOTINE (*PBKC) 21 MG PATCH 1 PATCH TRANSDERM (08:16)
[2021-12-06] MEDS: PREGABALIN (*CRX) 75 MG CAPSULE 150 MG PO (08:16)
[2021-12-06] MEDS: POTASSIUM CHLORIDE 20 MEQ TABLET.ER 40 MEQ PO (08:16)
[2021-12-06] MEDS: CYCLOBENZAPRINE HCL 10 MG TABLET PO (08:16)
[2021-12-06] MEDS: LEVOTHYROXINE SODIUM 150 MCG TABLET PO (08:17)
[2021-12-06] MEDS: FLUTICASONE/UMECLIDIN/VILANTER 100-62.5-25 MCG ELLIPTA 1 PUFF INHALATION (08:45)
[2021-12-06 08:48] VITALS: PULSE 69; RESP 18
[2021-12-06 08:50] VITALS: O2SAT 96
[2021-12-06] MEDS: CHOLECALCIFEROL 1,000 UNITS TABLET 1000 UNITS PO (09:18)
[2021-12-06] MEDS: allopurinoL 300 MG TABLET PO (09:18)
[2021-12-06] MEDS: ASPIRIN 81 MG ENTERIC TABLET PO (09:18)
[2021-12-06] MEDS: oxyCODONE HCL (*CRX) 5 MG TAB IR 10 MG PO (13:33)
[2021-12-06 14:50] VITALS: BP 146/77; PULSE 81; RESP 18; TEMP 36.9; O2SAT 97
--- NOTE | 2021-12-06 17:26 | PM.DS ---
DS: Admitting Diagnosis Discharge Date December 06, 2021 Admitting Diagnosis Back pain DS: Discharge Diagnosis Discharge Diagnosis (1) Fibromyalgia: Code(s): M79.7 - Fibromyalgia Status: Acute (2) Back pain: Code(s): M54.9 - Dorsalgia, unspecified Status: Acute DS: Summary Hospital Course Reason for hospitalization: Back pain Hospital Course: 36-year-old female with past medical history significant for fibromyalgia, obesity, kidney disease and neuropathy is presenting with back pain. She is concerned because she recently had a UTI and she feels like her pain to be significantly better. It was noted that she completed a 7 day course of Bactrim. In the ER, repeat UA was essentially resolved. Culture only showed [id number] CFU of E coli. Patient denies any fevers chills, nausea or vomiting. She was admitted for observation. During her observation stay, she was started on her home medications. She was given Tylenol, heating pad and supportive care. Symptoms improved significantly. It was thought to be a flare of her fibromyalgia. She was discharged in good condition on home medications with a short course of oxycodone as opposed to Percocet. Status at Discharge Functional status at discharge: independent ambulation Time Spent with Patient Time attestation: Total time spent providing and/or coordinating discharge services: Time spent: Less than 30 minutes Discharge Plan Discharge Attending physician on discharge: Mary Chen Consulting providers: Tianna Phillips V. Discharging Clinician: Mayr Chen Anticipated Discharge Date/Time: 12/06/21 16:30 Patient Disposition: Home, Self-Care Activity: as tolerated Diet: as tolerated Patient Instructions: Antibiotic Form, How to Stop Smoking (GEN) Stand Alone Forms: General Discharge Information Follow-up/Referrals: Roque,Silva Ortega MD [Primary Care Provider] - Discharge Medications: New oxycodone 10 mg tablet 10 mg PO Q8H PRN (Reason: pain) Qty: 14 RF: 0 Continued venlafaxine 75 mg capsule,extended release 24hr 75 mg PO HS RF: 0 venlafaxine 150 mg capsule,extended release 24hr 150 mg PO HS RF: 0 allopurinol 300 mg tablet 300 mg PO DAILY RF: 0 melatonin 10 mg Tablet 20 mg PO HS PRN (Reason: Insomnia) RF: 0 Trelegy Ellipta 100-62.5-25 mcg blister with device 1 inh INHALATION DAILY RF: 0 vitamin E 1,000 unit Capsule 1,000 unit PO DAILY RF: 0 cholecalciferol (vitamin D3) 25 mcg (1,000 unit) Capsule 25 mcg PO DAILY RF: 0 cyclobenzaprine 10 mg tablet 10 mg PO TID PRN (Reason: Cramps) RF: 0 furosemide 40 mg tablet 40 mg PO DAILY RF: 0 atorvastatin 20 mg tablet 20 mg PO DAILY RF: 0 metoprolol succinate 50 mg tablet extended release 24 hr 50 mg PO HS RF: 0 alprazolam 0.5 mg tablet 0.5 mg PO TID PRN (Reason: Anxiety) RF: 0 potassium chloride 20 mEq tablet,ER particles/crystals 40 meq PO DAILY RF: 0 diclofenac sodium 75 mg tablet,delayed release (DR/EC) 75 mg PO BID RF: 0 Hold Instructions: Resume when okay with your doctor. pregabalin [Lyrica] 100 mg capsule 150 mg PO BID RF: 0 naloxone [Narcan] 4 mg/actuation spray,non-aerosol 4 mg INTRANASAL PRN PRN (Reason: Opioid Overdose) RF: 0 levothyroxine [Euthyrox] 125 mcg tablet 150 mcg PO DAILY RF: 0 losartan 50 mg tablet 50 mg PO HS RF: 0 trazodone 100 mg tablet 100 mg PO HS RF: 0 hydroxyzine HCl 25 mg tablet 25 mg PO HS RF: 0 hydrochlorothiazide 25 mg tablet 25 mg PO DAILY RF: 0 Hold Instructions: Resume when okay with your doctor aspirin 81 mg Tablet,Delayed Release (Dr/Ec) 81 mg PO DAILY RF: 0 albuterol sulfate 90 mcg/actuation HFA aerosol inhaler 2 puff INHALATION Q6H PRN (Reason: Shortness Of Breath) RF: 0 Discontinued oxycodone-acetaminophen 5-325 mg tablet 1 tablet PO Q8H PRN (Reason: Pain) RF: 0 sulfamethox
== END 2021-12-06 18:30 | disposition home or self-care (01) ==
LOC: ANHED 17:13 → ANH3MED 23:39
PROVIDERS: Admitting Provider Family Medicine; Emergency Provider Emergency Medicine; PCP Family Medicine; Visit Provider Student in an Organized Health Care Education/Training Program
DX: M79.7 Fibromyalgia (principal); M54.9 Dorsalgia, unspecified; I12.9 Hypertensive chronic kidney disease with stage 1 through stage 4 chronic kidney disease, or unspecified chronic kidney disease; N18.30 Chronic kidney disease, stage 3 unspecified; J44.9 Chronic obstructive pulmonary disease, unspecified; E78.5 Hyperlipidemia, unspecified; E03.9 Hypothyroidism, unspecified; G62.9 Polyneuropathy, unspecified; G47.33 Obstructive sleep apnea (adult) (pediatric); F41.8 Other specified anxiety disorders; Z86.718 Personal history of other venous thrombosis and embolism; Z79.51 Long term (current) use of inhaled steroids; Z79.82 Long term (current) use of aspirin; E66.01 Morbid (severe) obesity due to excess calories; Z68.42 Body mass index [BMI] 45.0-49.9, adult; F17.210 Nicotine dependence, cigarettes, uncomplicated
CPT/HCPCS: 36415; 80053; 81001; 85025; 94640; 96361; 96365; 96374; 99285; A9270; G0378; J0696; J7030; J7120